=== PATIENT | male | born 1995 | race Caucasian/White ===

== ENCOUNTER 2021-02-17 07:23 | Outpatient (REF) | payer OTHER, SELFPAY ==
--- NOTE | ~2021-02-17 | MR_ITS ---
MRI OF THE BRAIN WITHOUT IV CONTRAST INDICATION: Headache. COMPARISON: Head CT 05/21/2020. TECHNIQUE: Multiplanar multisequence MR imaging of the brain was obtained without IV contrast. FINDINGS: There is no hydrocephalus, extra-axial surface collection, or herniation. No parenchymal signal abnormality. The major flow voids at the skull base are preserved. There is no acute infarct on diffusion-weighted imaging. There is no intracranial hemorrhage on the gradient recalled echo acquisition. The midline structures are normal. The cerebellar tonsils are normally positioned. The cerebellum and brainstem are normal. The craniocervical junction is normal. Osseous marrow signal intensity is homogenous. The visualized soft tissues are unremarkable. Mild mucosal thickening throughout the paranasal sinuses. Significant leftward deviation of the nasal septum. MR/MR head/brain wo con IMPRESSION: Unremarkable noncontrast MRI of the brain. Mild mucosal thickening throughout the paranasal sinuses. Significant leftward deviation of the nasal septum.
== END 2021-02-17 07:24 | disposition home or self-care (01) ==
LOC: HO.MRI 07:23
PROVIDERS: Visit Provider Nurse Practitioner Family
DX: R51.9 Headache, unspecified (principal); G89.29 Other chronic pain
CPT/HCPCS: 70551

== ENCOUNTER 2021-06-11 06:56 | Outpatient (REF) | payer OTHER, SELFPAY ==
[2021-06-11 11:57] LABS: Alanine Aminotransferase 28 U/L (0-40); Albumin Level 4.6 g/dL (3.5-5.0); Alkaline Phosphatase 73 U/L (39-117); Anion Gap 12 (12-20); Aspartate Amino Transferase 18 U/L (5-37); Bilirubin Total 0.7 mg/dL (0.0-1.0); Blood Urea Nitrogen 15 mg/dL (9-16); Calcium 9.8 mg/dL (8.4-10.2); Carbon Dioxide 30 mmol/L (22-29); Chloride 104 mmol/L (96-108); Cholesterol 218 mg/dL; Estimated Glomerular Filt Rate > 60; Glucose Fasting 96 mg/dL (60-99); HDL Cholesterol 47 mg/dL; LDL Cholesterol Calculated 154 mg/dl; Potassium 4.2 mmol/L (3.3-5.1); Sodium 142 mmol/L (135-145); Total Protein 7.5 g/dL (6.5-8.0); Triglycerides 87 mg/dL
[2021-06-11 12:22] LABS: TSH reflex Free T4 0.76 uIU/mL (0.32-4.0)
== END 2021-06-11 06:57 | disposition home or self-care (01) ==
LOC: HO.HMGCLDS 06:56
PROVIDERS: PCP Nurse Practitioner Family; Visit Provider Nurse Practitioner Family
DX: G89.29 Other chronic pain (principal); R51.9 Headache, unspecified
CPT/HCPCS: 36415; 80053; 80061; 84443

== ENCOUNTER 2021-07-18 10:14 | Emergency (ER) | payer OTHER, SELFPAY ==
--- NOTE | ~2021-07-18 | XR_ITS ---
EXAMINATION: XR CHEST CLINICAL INFORMATION: Chest pain COMPARISON: Chest radiographs 12/26/2019 TECHNIQUE: 2 views of the chest were obtained. FINDINGS: The lungs are clear. There is no airspace consolidation, groundglass opacity, pneumothorax, or pleural reaction. The costophrenic sulci are clear. There is no effusion. The heart is normal in size. The hilar and mediastinal contours are normal. There is a gentle dextrocurvature again noted thoracic spine. No visible acute bony abnormality. XR/XR chest 2V IMPRESSION: Unremarkable examination.
[2021-07-18 10:20] VITALS: BP 130/81; PULSE 88; RESP 16; TEMP 36.2; O2SAT 97; BMI 23.7
--- NOTE | 2021-07-18 10:41 | ECG_ITS ---
Test Reason : SOB Blood Pressure : / mmHG Vent. Rate : 083 BPM Atrial Rate : 083 BPM P-R Int : 138 ms QRS Dur : 092 ms QT Int : 384 ms P-R-T Axes : 077 064 049 degrees QTc Int : 451 ms Normal sinus rhythm Possible Left atrial enlargement Borderline ECG No previous ECGs available Referred By: Lois Ledezma Electronically Signed By:STACI HAWKINS
--- NOTE | 2021-07-18 10:41 | ED_ITS ---
HPI - Chest Pain General Chief Complaint: Chest Pain Stated Complaint: chest pain Time Seen by Provider: 07/18/21 10:40 Source: patient Mode of arrival: ambulatory Limitations: no limitations History of Present Illness MD complaint: chest pain Onset (ago): day(s) (4) Timing of current episode: constant Prior episodes: No Onset: during rest Pain location: substernal and left chest Pain radiation: none Severity: moderate Quality: tightness and heaviness Relieving factors: nothing Exacerbating factors: nothing Associated symptoms: dyspnea Treatment prior to arrival: none Related Data Allergies Allergy/AdvReac Type Severity Reaction Status Date / Time No Known Allergies Allergy Verified 03/25/21 14:25 [No Known Allergies*] Review of Systems Review of Systems: Constitutional : No Weight loss, No Fever, No Chills ENT/Mouth : No sore throat, No Rhinorrhea Eyes: No Eye Pain, No Swelling Cardiovascular : pos Chest Pain, pos SOB, no Dyspnea on Exertion, No Orthopnea, No Edema, No Palpitations Respiratory : No Cough, No Sputum Gastrointestinal : no Nausea, No Vomiting, No Diarrhea, No abdominal Pain, No Hematochezia, No Melena Genitourinary : No Dysuria, No Urinary Frequency Musculoskeletal : No joint pain, No Myalgias, No Joint Swelling Skin : No Skin Lesions, No rash Neuro : No Weakness, No Numbness, No Dizziness, No Headache Psych : No Anxiety/Panic, No Depression Heme/Lymph: No Bruising, No Lymphadenopathy Endocrine : No Polyuria, No Polydipsia All other systems reviewed and are negative PMFSH Past Medical History Attestation statement: The following information was validated with the patient. Medical History Chronic pain disorder Fibromyalgia High cholesterol Family History Family History Father No problems noted. Mother No problems noted. Maternal Aunt Cancer Sister No problems noted. Social History Social History Alcohol intake: never Patient Tobacco Use Status: Never used Tobacco Use of substances other than those prescribed or required for medical reasons: No Advance Directives: No Advance Directives Information Provided: No Physical Exam Vital Signs: Vital Signs: Last Vital Signs Temp 97.1 F 07/18/21 10:20 Pulse 88 07/18/21 10:20 Resp 16 07/18/21 10:20 BP 130/81 07/18/21 10:20 Pulse Ox 97 07/18/21 10:20 Body Mass Index 23.7 Appearance: Alert. Oriented X3. No acute distress. Eyes: Pupils equal, round and reactive to light. ENT: Pharynx normal. Neck: Normal inspection. Neck supple. CVS: Normal heart rate and rhythm. Pulses normal. Respiratory: No respiratory distress. Breath sounds normal. Abdomen: Soft and non-tender. Skin: Skin warm and dry. Normal skin color. Normal skin turgor. Extremities: No lower extremity edema. No calf ttp Neuro: Oriented X 3. No motor deficit. No sensory deficit. Course Course Course Narrative: EKG nonspecific, neg trop with 4 days of symptoms, CXR negative COVID negative stable for DC MDM - Chest Pain MDM Narrative Medical decision making narrative: 25 yo male with hx of dislipidemia here with complaints of chest pain x 4 days with some associated dyspnea at this time he is PERC negative, atypical for ACS, low heart score - no recent URIs to suggest pericarditis/myocarditis. At this time will need troponin x1, CXR, EKG - dispo per results and findings. Lab Data Labs: Lab Results 07/18/21 07/18/21 Range/Units 11:14 11:14 Troponin I High Sens < 3.5 (<3.5-35.0) ng/L COVID-19 ([facility]) Negative (Negative) COVID-19 Clin Com See Note ECG Data ECG #1: Attestation: I personally reviewed and interpreted this ECG as follows: ECG interpretation date: 07/18/21 ECG interpretation time: 11:13 Interpretation: Rate: 83 Rhythm: NSR [place]: normal Normal P waves. Normal DANTE. Normal QRS complex. ST T wave : no acute ischemia nonspecific no CARSON qTC: normal prior studies: no acute ischemia The study has been interpreted contemporaneously by me. . Scores Heart Score History: -0- slightly suspicious ECG: -0- normal Age: -0- < or = 45 Risk factory: -1- 1 or 2 risk factors Troponin: -0- < or = normal limit Score: 1 Risk: 1.7% Discharge Plan Discharge Clinical Impression: Chest pain Qualifiers: Chest pain type: unspecified Qualified Code(s): R07.9 - Chest pain, unspecified Patient Disposition: Home, Self-Care Instructions: Chest Pain (ED) Additional Instructions: return to ED for any worsening symptoms or concerns NEGATIVE COVID Referrals: Fareed Nina, [facility] [Primary Care Provider] - 3 days (if this continues possible referral to cardiology ) Stand Alone Forms: Work/School Release
[2021-07-18 11:38] LABS: Troponin-I High Sensitivity < 3.5 ng/L (<3.5-35.0)
[2021-07-18 11:45] LABS: COVID-19 Test Negative (Negative)
== END 2021-07-18 12:21 | disposition home or self-care (01) ==
PROVIDERS: Emergency Provider Emergency Medicine; PCP Nurse Practitioner Family
DX: R07.9 Chest pain, unspecified (principal); Z20.822 Contact with and (suspected) exposure to COVID-19
CPT/HCPCS: 36415; 71046; 84484; 87635; 93005; 99283; 99284

== ENCOUNTER 2022-12-14 07:28 | Outpatient (REF) | payer OTHER, SELFPAY ==
[2022-12-14 11:57] LABS: MANUAL DIFF FLAG NO
[2022-12-14 12:04] LABS: Appearance Urine Turbid; Color Urine Yellow; Glucose Urine UA Negative (Negative); Leukocyte Esterase Urine Negative (Negative); Nitrite Urine Negative (Negative); PH 5.5 (5.0-9.0); Specific Gravity - Urine 1.025 (1.005-1.025); Urine Blood Negative (Negative); Urine Ketones Negative (Negative); Urine Protein Negative (Neg-Trace)
[2022-12-14 12:10] LABS: Basophils Percent Auto 0.6 % (0-2); Eosinophils Absolute Auto 0.3 X10*3/uL (0.0-0.4); Eosinophils Percent Auto 4.1 % (0-4); Hematocrit 44.3 % (42.0-52.0); Hemoglobin 15.1 g/dl (14.0-18.0); Imm Gran Abs Auto 0.02 X10*3/uL (0.00-0.03); Imm Gran Pct Auto 0.3 % (0.0-0.4); Lymphocytes Absolute Auto 2.9 X10*3/uL (1.2-4.9); Lymphocytes Percent Auto 43.7 % (20-40); Mean Corpuscular HGB Conc 34.1 g/dl (31.0-36.0); Mean Corpuscular Hemoglobin 29.2 pg (27.0-33.0); Mean Corpuscular Volume 85.5 fL (80.0-98.0); Monocytes Absolute Auto 0.6 X10*3/uL (0.1-1.2); Monocytes Percent Auto 9.3 % (2-11); Neutrophils Absolute Auto 2.8 x10*3/uL (2.0-8.3); Platelet Count 231 X10*3/uL (160-400); Red Blood Count 5.18 X10*6/uL (4.60-5.80); Red Cell Distribution Width 12.6 % (11.0-16.0); White Blood Count 6.6 X10*3/uL (4.8-10.8)
[2022-12-14 12:38] LABS: Alanine Aminotransferase 25 U/L (0-40); Albumin Level 4.4 g/dL (3.5-5.0); Alkaline Phosphatase 77 U/L (39-117); Anion Gap 9 (12-20); Aspartate Amino Transferase 20 U/L (5-37); Bilirubin Total 0.4 mg/dL (0.0-1.0); Blood Urea Nitrogen 15 mg/dL (9-16); Calcium 9.5 mg/dL (8.4-10.2); Carbon Dioxide 30 mmol/L (22-29); Chloride 106 mmol/L (96-108); Cholesterol 205 mg/dL; Estimated Glomerular Filt Rate > 60; Glucose Fasting 107 mg/dL (60-99); HDL Cholesterol 41 mg/dL; LDL Cholesterol Calculated 149 mg/dl; Potassium 4.2 mmol/L (3.3-5.1); Sodium 141 mmol/L (135-145); Total Protein 6.9 g/dL (6.5-8.0); Triglycerides 78 mg/dL
[2022-12-14 12:46] LABS: TSH reflex Free T4 0.96 uIU/mL (0.32-4.0)
== END 2022-12-14 07:29 | disposition home or self-care (01) ==
LOC: HO.HMGCLDS 07:28
PROVIDERS: PCP Nurse Practitioner Family; Visit Provider Nurse Practitioner Family
DX: Z00.00 Encounter for general adult medical examination without abnormal findings (principal)
CPT/HCPCS: 36415; 80053; 80061; 81003; 84443; 85025

== ENCOUNTER 2023-07-21 07:06 | Outpatient (AMB) | payer OTHER, SELFPAY ==
--- NOTE | 2023-07-21 07:21 | MHC.OFFVIS ---
Intake Intake Visit Reasons: Discuss request for labs Android [phone] Allergies No Known Allergies [No Known Allergies*] Allergy (Verified 11/16/22 09:04) HPI Discuss request for labs Android [phone] HPI Details Patient reports approximately 1 year ago he developed COVID. He reports since then he has had intermittent shortness of breath. He denies any fevers, chest pain, chills, nausea, vomiting. Will order a chest x-ray and go from here. Did reinforce the patient that there is such thing as long COVID , characterized b residual COVID symptoms in general. [facility] Medical History Chronic pain disorder Fibromyalgia High cholesterol Family History Father No problems noted. Mother No problems noted. Maternal Aunt Cancer Sister No problems noted. Social History Housing: Apartment Alcohol intake: never Patient Tobacco Use Status: Never used Tobacco e-Cigarette/Vaping Use: Never Used Second Hand Smoke Exposure: No service: No Current occupational status: employed Current occupation: [employer] Current occupational exposures/hazards: No Cognitive needs: No Hearing needs: No Vision needs: No Physical Exam Psych Appearance: grossly normal Mental Status: mental status grossly normal Speech and movement: Normal speech and movement present Affect: normal affect Attitude: cooperative Thought process: Normal thought process present Thought content: Normal thought content present Insight: Good insight present (Psych) Judgement: Good judgement present (Psych) Assessment & Plan Assessment & Plan (1) SOB (shortness of breath): Code(s): R06.02 - Shortness of breath (2) Long COVID: Code(s): U09.9 - Post COVID-19 condition, unspecified Orders: Orders Complete Blood Count Auto Diff Today E78.5 - Hyperlipidemia, unspecified, Z00.00 - Encounter for general adult medical examination without abnormal findings Comprehensive [place]. Panel Fast Today E78.5 - Hyperlipidemia, unspecified, Z00.00 - Encounter for general adult medical examination without abnormal findings TSH reflex Free T4 Today E78.5 - Hyperlipidemia, unspecified, Z00.00 - Encounter for general adult medical examination without abnormal findings UA CC w/rflx Micro + Cult Today E78.5 - Hyperlipidemia, unspecified, Z00.00 - Encounter for general adult medical examination without abnormal findings Lipid Panel Today E78.5 - Hyperlipidemia, unspecified, Z00.00 - Encounter for general adult medical examination without abnormal findings XR chest 2V Today R06.02 - Shortness of breath Telehealth Telehealth Location of provider rendering services: practice address Location of patient: address on file Patient Identification confirmed using: Name, : Yes Telehealth method: video Patient verbally consented to treatment: Yes Patient verbally consented to billing insurance company: Yes Patient informed of any privacy concerns related to visit: Yes Minutes spent on Phone/Video with Pt.: 10 Coding Level of Care Code Tele Est Pt Level 3 (21493) Diagnoses SOB (shortness of breath) R06.02 Long COVID U09.9
== END 2023-07-21 07:49 | disposition home or self-care (01) ==
PROVIDERS: PCP Nurse Practitioner Family; Visit Provider Nurse Practitioner Family
DX: R06.02 Shortness of breath (principal); U09.9 Post COVID-19 condition, unspecified
CPT/HCPCS: 99213

== ENCOUNTER 2023-07-22 08:11 | Outpatient (REF) | payer OTHER, SELFPAY ==
[2023-07-22 12:08] LABS: Alanine Aminotransferase 26 U/L (0-40); Albumin Level 4.7 g/dL (3.5-5.0); Alkaline Phosphatase 78 U/L (39-117); Anion Gap 16 (12-20); Aspartate Amino Transferase 20 U/L (5-37); Bilirubin Total 0.6 mg/dL (0.0-1.0); Blood Urea Nitrogen 16 mg/dL (9-16); Calcium 9.6 mg/dL (8.4-10.2); Carbon Dioxide 26 mmol/L (22-29); Chloride 102 mmol/L (96-108); Cholesterol 231 mg/dL (<200); Estimated Glomerular Filt Rate > 60; Glucose Fasting 87 mg/dL (60-99); HDL Cholesterol 42 mg/dL (>40); LDL Cholesterol Calculated 169 mg/dL (<100); Potassium 3.6 mmol/L (3.3-5.1); Sodium 140 mmol/L (135-145); TSH reflex Free T4 0.43 uIU/mL (0.32-4.0); Total Protein 7.9 g/dL (6.5-8.0); Triglycerides 103 mg/dL (<150)
== END 2023-07-22 08:12 | disposition home or self-care (01) ==
LOC: HO.HMGCLDS 08:11
PROVIDERS: PCP Nurse Practitioner Family; Visit Provider Nurse Practitioner Family
DX: Z00.00 Encounter for general adult medical examination without abnormal findings (principal); E78.5 Hyperlipidemia, unspecified
CPT/HCPCS: 36415; 80053; 80061; 81003; 84443; 85025

== ENCOUNTER 2023-07-23 09:03 | Outpatient (REF) | payer OTHER, SELFPAY | END 2023-07-23 09:04 | disposition home or self-care (01) | LOC: HO.HMGCX 09:03 | PROVIDERS: PCP Nurse Practitioner Family; Visit Provider Nurse Practitioner Family | DX: R06.02 Shortness of breath (principal) | CPT/HCPCS: 71046 ==

== ENCOUNTER 2023-08-26 08:17 | Outpatient (REF) | payer OTHER, SELFPAY ==
--- NOTE | 2023-08-26 09:01 | PFT_ITS ---
Forced vital capacity 94%, FEV1 88%, FEV1/FVC ratio is 77. [id number] 75% and MVV is 96%. Post bronchodilator therapy, there is no change. Total lung capacity 82% and residual volume is 43%. Diffusion capacity 94%. CONCLUSION: Normal pulmonary function test. No evidence of obstructive or restrictive pulmonary disorder. Marked decrease in the residual volume is more due to technical issue. Clinical correlation is recommended. MD AMRITA Aguilera/LUCIA / [phone]
== END 2023-08-26 08:18 | disposition home or self-care (01) ==
LOC: HO.RESP 08:17
PROVIDERS: PCP Nurse Practitioner Family; Visit Provider Nurse Practitioner Family
DX: R06.02 Shortness of breath (principal); U09.9 Post COVID-19 condition, unspecified
CPT/HCPCS: 94010; 94727; 94729

== ENCOUNTER → 2023-08-26 09:01 | Outpatient (BNV) | payer OTHER, SELFPAY | PROVIDERS: PCP Nurse Practitioner Family; Visit Provider Internal Medicine | DX: R06.02 Shortness of breath (principal); U09.9 Post COVID-19 condition, unspecified | CPT/HCPCS: 94060; 94727; 94729 ==

== ENCOUNTER 2023-11-18 10:30 | Outpatient (AMB) | payer OTHER, SELFPAY ==
[2023-11-18 10:41] VITALS: BP 128/86; PULSE 73; O2SAT 99; BMI 26.7
--- NOTE | 2023-11-18 10:41 | A.OFFPC_ITS ---
Vital Signs 11/18/23 10:41 Height 5 ft 11 in Weight 191 lb 6 oz BMI 26.7 BP 128/86 Blood Pressure Location Rt brachial Position Sitting Pulse 73 Pulse Source Pulse Oximeter Pulse Oximetry (%) 99 Oxygen Delivery Method Room Air Intake Visit Reasons: PE Intake Note: Pt is here for his Annual PE Allergies No Known Allergies [No Known Allergies*] Allergy (Verified 11/18/23 10:43) Medication List - Last Reconciled 11/18/23 by WEN Gorman ketoconazole 2% 1 appl topical BID Tobacco use date assessed: 11/18/23 Dental Screening Dental Screen Date: 11/18/23 Did you have a dental visit in the last 12 months?: No Did you have a dental problem in the last 6 months where you did not have access to dental care?: No Was dental information given to patient?: No HPI PE HPI Details Pt is here for a PE. Will order labs. Pt c/o a burning sensation of his upper chest. He reports intermittent shortness of breath with this. Pt reports that the burning can be associated with inhalation and exhalation. He reports that it is worse when lying down. Previous EKG and chest XR were WNL. Pt reports that these symptoms have been present since having COVID. Will do an EKG in office today and order chest CT. Pt has an area of tinea to his right groin. Will send ketoconazole. ? GERD component as well, will send a PPI to try to see if it helps symptoms. pt will keep in contact with me with his currrent symptoms. denies any fevers, chills, radiation of symptoms, Wheezing, N/V. [facility] Medical History High cholesterol Fibromyalgia Chronic pain disorder Family History Father No problems noted. Mother No problems noted. Maternal Aunt Cancer Sister No problems noted. Social History Housing: Apartment Alcohol intake: never Patient Tobacco Use Status: Never used Tobacco e-Cigarette/Vaping Use: Never Used Second Hand Smoke Exposure: No service: No Current occupational status: employed Current occupation: [employer] Current occupational exposures/hazards: No Cognitive needs: No Hearing needs: No Vision needs: No Questionnaire PHQ-9 Over the last 2 weeks, how often have you been bothered by any of the following problems? 1. Little interest or pleasure in doing things: not at all 2. Feeling down, depressed, or hopeless: not at all 3. Trouble falling or staying asleep, or sleeping too much: not at all 4. Feeling tired or having little energy: not at all 5. Poor appetite or overeating: not at all 6. Feeling bad about yourself - or that you are a failure or have let yourself or your family down: not at all 7. Trouble concentrating on things, such as reading the newspaper or watching television: not at all 8. Moving or speaking so slowly that other people could have noticed. Or the opposite - being so fidgety or restless that you have been moving around a lot more than usual: not at all 9. Thoughts that you would be better off or of hurting yourself in some way: not at all Total score: 0 Source: Developed by Drs. Jose Ramirez, Jennie Stanton, Ildefonso Montes and colleagues, with an educational bonnie from [employer]. Thrive Questionnaire Date Thrive assessed: 11/18/23 I am a: Patient What is your living situation today?: I have a steady place to live Within the past 12 months, did the food you bought not last and you didn't have the money to get more?: Often true Within the past 12 months, did you worry whether your food would run out before you got money to buy more?: Often true Do you have trouble paying for medicines?: No Do you have trouble getting transportation to medical appointments?: No Do you have trouble paying your heating and electricity bill?: Yes Do you have trouble taking care of your child, family member or friend?: No Do you have trouble with day-to-day activities such as bathing, preparing meals, shopping, managing finances, etc.?: No Are you currently unemployed and looking for a job?: No Are you interested in more education?: Yes THRIVE Score: 3 AUDIT C Alcohol Use Questionnaire (AUDIT-C) 1. How often do you have a drink containing alcohol?: Never Total Score: 0 VIDHYA-7 AMB Questionnaire VIDHYA-7 Date VIDHYA - 7 assessed: 11/18/23 Feeling nervous, anxious, or on edge: 0 = Not at all Not being able to stop or control worryin = Not at all Worrying too much about different things: 0 = Not at all Trouble relaxin = Not at all Being so restless that it is hard to sit still: 0 = Not at all Becoming easily annoyed or irritable: 0 = Not at all Feeling afraid as if something awful might happen: 0 = Not at all Total VIDHYA-7 score (0-4 normal; 5-9 mild; 10-14 moderate; 15-21 severe): 0 Source: Developed by Drs. Jose Ramirez, Jennie Stanton, Ildefonso Montes and colleagues, with an educational bonnie from [employer]. Review of Systems Const Denies chills and Denies fever(s) Eyes Denies blurry vision ENT Denies vertigo, Denies dizziness and Denies sore throat Card Reports chest pain (burning sensation), Denies diaphoresis, Reports dyspnea and Reports dyspnea on exertion Resp Denies cough, Reports dyspnea, Reports dyspnea on exertion and Denies wheezing GI Denies abdominal pain, Denies melena, Denies hematochezia, Denies constipation, Denies diarrhea and Denies loose stools Denies hematuria Musc Denies numbness and Denies tingling Skin/Breast Denies lesions Neuro Denies vertigo, Denies dizziness, Denies numbness and Denies tingling Psych Denies anxiety, Denies depression, Denies homicidal ideation, Denies suicidal ideation and Denies other (substance abuse) Aller/Immun Denies wheezing Physical exam (Primary Care) Vital Signs: Last Vital Signs Pulse 73 11/18/23 10:41 BP 128/86 11/18/23 10:41 Pulse Ox 99 11/18/23 10:41 Oxygen Delivery Method Room Air 11/18/23 10:41 BMI result Body Mass Index 26.7 Tobacco/Smoking Status: Tobacco use Status Tobacco use date assessed 11/18/23 11/18/23 10:45 Patient Tobacco Use Status Never used Tobacco 11/18/23 10:45 e-Cigarette/Vaping Use Never Used 11/18/23 10:45 PHQ-9: PHQ-9 Score PHQ-9: Total score 0 11/18/23 10:51 Thrive Assessment: Date of Thrive Assessment Date Thrive assessed 11/18/23 11/18/23 10:48 Const General: cooperative Nutritional Appearance: well nourished Orientation/consciousness: patient oriented x3 HENMT Head: Yes normal to inspection, Yes normocephalic and Yes atraumatic Ears: TM's normal bilaterally Eyes General: appearance normal, both eyes and all related structures Alignment and Position: alignment normal and position normal Neck Neck: Yes normal visual inspection and Yes no lymphadenopathy Thyroid: Thyroid normal Resp Effort & Inspection: normal respiratory effort Auscultation: clear to auscultation bilaterally Cardio Rate: regular rate Rhythm: regular rhythm Heart sounds: S1 normal heart sound present, S2 normal heart sound present and no murmurs GI Palpation (GI): Soft to palpation and nontender Auscultation: normal bowel sounds Male General Exam: Yes normal external exam Penis: normal penis Scrotum: scrotum normal, testes descended bilaterally and no inguinal hernias Testes: no testicular mass Skin Other: right groin with macular appearing erythema, faintly dry, tinea Neuro General: patient oriented x3, moves all extremities, no focal motor deficits and deep tendon reflexes 2+ bilaterally Romberg Test: Negative Psych Appearance: grossly normal Mental Status: mental status grossly normal Speech and movement: Normal speech and movement present Affect: normal affect Attitude: cooperative Thought process: Normal thought process present Thought content: Normal thought content present Insight: Good insight present (Psych) Judgement: Good judgement present (Psych) Assessment and Plan Assessment & Plan (1) Physical exam: Code(s): Z00.00 - Encounter for general adult medical examination without abnormal findings Plan: Labs ordered (2) Chest pain: Code(s): R07.9 - Chest pain, unspecified Qualifiers: Chest pain type: unspecified Qualified Code(s): R07.9 - Chest pain, unspecified Plan: EKG done in office, CT ordered, trying a PPI (3) Tinea: Code(s): B35.9 - Dermatophytosis, unspecified Plan: cream sent Plan The patient agreed to the use of a registered medical assistant for this encounter. Scribed for WEN Gomez by jesús Yun scribe, on 11/18/2023 at 10:55 EST. Orders: Orders Comprehensive [place]. Panel Fast Today Z00.00 - Encounter for general adult medical examination without abnormal findings UA CC w/rflx Micro + Cult Today Z00.00 - Encounter for general adult medical examination without abnormal findings Lipid Panel Today Z00.00 - Encounter for general adult medical examination without abnormal findings AMB EKG-In Office Today R07.9 - Chest pain, unspecified Complete Blood Count Auto Diff Today Z00.00 - Encounter for general adult medical examination without abnormal findings TSH reflex Free T4 Today Z00.00 - Encounter for general adult medical examination without abnormal findings CT chest wo IV con Today R07.9 - Chest pain, unspecified Medications: New ketoconazole 2% 1 appl topical BID 60 grams 0RF omeprazole 20 mg PO DAILY 30 days 30 caps 0RF Coding Level of Care Code Est Pt Prev Care 18-39y(91739) Diagnoses Physical exam Z00.00 Chest pain R07.9 Chest pain type: unspecified Tinea B35.9
== END 2023-11-18 13:37 | disposition home or self-care (01) ==
PROVIDERS: Visit Provider Nurse Practitioner Family
DX: Z00.00 Encounter for general adult medical examination without abnormal findings (principal); R07.9 Chest pain, unspecified; B35.9 Dermatophytosis, unspecified
CPT/HCPCS: 99395

== ENCOUNTER 2023-11-19 08:12 | Outpatient (REF) | payer OTHER, SELFPAY ==
[2023-11-19 11:47] LABS: MANUAL DIFF FLAG NO
[2023-11-19 11:51] LABS: Appearance Urine Clear; Color Urine Yellow; Glucose Urine UA Negative (Negative); Leukocyte Esterase Urine Negative (Negative); Nitrite Urine Negative (Negative); Specific Gravity - Urine >= 1.030 (1.005-1.025); Urine Blood Negative (Negative); Urine Ketones 15 mg/dL (Negative); Urine Protein Negative (Neg-Trace)
[2023-11-19 11:59] LABS: Basophils Percent Auto 0.4 % (0-2); Eosinophils Absolute Auto 0.1 X10*3/uL (0.0-0.4); Eosinophils Percent Auto 1.9 % (0-4); Hematocrit 47.1 % (42.0-52.0); Imm Gran Abs Auto 0.04 X10*3/uL (0.00-0.03); Imm Gran Pct Auto 0.5 % (0.0-0.4); Lymphocytes Absolute Auto 2.2 X10*3/uL (1.2-4.9); Lymphocytes Percent Auto 30.2 % (20-40); Mean Corpuscular Hemoglobin 28.3 pg (27.0-33.0); Mean Corpuscular Volume 83.2 fL (80.0-98.0); Mean Platelet Volume 12.1 fL (9.4-12.4); Monocytes Absolute Auto 0.5 X10*3/uL (0.1-1.2); Monocytes Percent Auto 7.3 % (2-11); Neutrophils Absolute Auto 4.3 x10*3/uL (2.0-8.3); Neutrophils Percent Auto 59.7 % (45-73); Platelet Count 274 X10*3/uL (160-400); Red Blood Count 5.66 X10*6/uL (4.60-5.80); Red Cell Distribution Width 12.5 % (11.0-16.0); White Blood Count 7.3 X10*3/uL (4.8-10.8)
[2023-11-19 12:20] LABS: Alanine Aminotransferase 36 U/L (0-40); Albumin Level 4.7 g/dL (3.5-5.0); Alkaline Phosphatase 88 U/L (39-117); Anion Gap 15 (12-20); Aspartate Amino Transferase 24 U/L (5-37); Bilirubin Total 0.7 mg/dL (0.0-1.0); Blood Urea Nitrogen 18 mg/dL (9-16); Calcium 9.8 mg/dL (8.4-10.2); Carbon Dioxide 23 mmol/L (22-29); Chloride 104 mmol/L (96-108); Cholesterol 232 mg/dL (<200); Estimated Glomerular Filt Rate > 60; Glucose Fasting 92 mg/dL (60-99); HDL Cholesterol 42 mg/dL (>40); LDL Cholesterol Calculated 162 mg/dL (<100); Potassium 3.8 mmol/L (3.3-5.1); Sodium 138 mmol/L (135-145); Total Protein 8.1 g/dL (6.5-8.0); Triglycerides 143 mg/dL (<150)
== END 2023-11-19 08:13 | disposition home or self-care (01) ==
LOC: HO.HMGCLDS 08:12
PROVIDERS: PCP Nurse Practitioner Family; Visit Provider Nurse Practitioner Family
DX: Z00.00 Encounter for general adult medical examination without abnormal findings (principal); Z13.220 Encounter for screening for lipoid disorders; Z13.29 Encounter for screening for other suspected endocrine disorder
CPT/HCPCS: 36415; 80053; 80061; 81003; 84443; 85025

== ENCOUNTER 2024-01-31 13:15 | Outpatient (AMB) | payer OTHER, SELFPAY ==
[2024-01-31 13:18] VITALS: BP 110/76; PULSE 84; TEMP 36.4; O2SAT 95; BMI 26.8
--- NOTE | 2024-01-31 13:18 | AM.OFFWIN_ITS ---
Intake Vital Signs 01/31/24 13:18 Height 5 ft 11 in Weight 192 lb BMI 26.8 BP 110/76 Blood Pressure Location Lt brachial Position Sitting Pulse 84 Pulse Source Pulse Oximeter Temp 97.6 F Temp Source Temporal Artery Scan Pulse Oximetry (%) 95 Oxygen Delivery Method Room Air Intake Visit Reasons: EP chest pain difficulty breathing TRIAGE (lobby) Intake Note: pt is here today for chest pain diff breathing started 2 years ago Patient Tobacco Use Status: Never used Tobacco Allergies No Known Allergies [No Known Allergies*] Allergy (Verified 01/31/24 13:20) Do you need a note to return to daycare/school/sports/work: No HPI HPI Comments History of Present Illness Details 28 y/o male patient who presents to [facility] with c/o chest pain associated with SOB and difficulty to talk in complete sentences. Reports Epigastric chest pain. His symptoms started 2 years ago (on/Off). H/o Fibromylagia per Patient but otherwise healthy. Denies any mental conditions (Anxiety or depression). He was given Omeprazole previously by PCP with no relief. [facility] Medical History High cholesterol Fibromyalgia Chronic pain disorder Family History Father No problems noted. Mother No problems noted. Maternal Aunt Cancer Sister No problems noted. Social History Housing: Apartment Alcohol intake: never Patient Tobacco Use Status: Never used Tobacco e-Cigarette/Vaping Use: Never Used Second Hand Smoke Exposure: No service: No Current occupational status: employed Current occupation: [employer] Current occupational exposures/hazards: No Cognitive needs: No Hearing needs: No Vision needs: No Physical Exam Vital Signs: Last Vital Signs Temp 97.6 F 01/31/24 13:18 Pulse 84 01/31/24 13:18 BP 110/76 01/31/24 13:18 Pulse Ox 95 01/31/24 13:18 Oxygen Delivery Method Room Air 01/31/24 13:18 BMI result Body Mass Index 26.8 Const General: no acute distress; No comfortable Nutritional Appearance: thin Orientation/consciousness: patient oriented x3 Resp Effort & Inspection: normal respiratory effort, able to speak in complete sentences, no audible wheezes and no cough Auscultation: clear to auscultation bilaterally, no crackles, no rales, no rhonchi and no wheezes Neuro General: patient oriented x3, gait normal and moves all extremities Psych Speech and movement: Clear speech present Affect: Anxious affect present Assessment & Plan Assessment & Plan (1) Epigastric pain: Code(s): R10.13 - Epigastric pain Plan: Pt very uncomfortable during the visit, Advised to go ED for further evaluation. CT scan chest was denied by Insurance. Pt stable, vitals WNL and exam WNL. Lungs CTA. Pt able to speak in complete sentences. Coding Level of Care Code Est Pt Level 3 (88657) Diagnoses Epigastric pain R10.13 Time Spent (min) 15
== END 2024-01-31 14:26 | disposition home or self-care (01) ==
PROVIDERS: PCP Nurse Practitioner Family; Visit Provider Nurse Practitioner Family
DX: R10.13 Epigastric pain (principal)
CPT/HCPCS: 99213

== ENCOUNTER 2024-05-04 08:12 | Outpatient (AMB) | payer OTHER, SELFPAY ==
[2024-05-04 08:18] VITALS: BP 118/72; PULSE 86; TEMP 36.6; O2SAT 98; BMI 26.8
--- NOTE | 2024-05-04 08:18 | MHC.OFFWIV ---
Intake Vital Signs 05/04/24 08:18 Height 5 ft 11 in Weight 192 lb BMI 26.8 BP 118/72 Blood Pressure Location Rt brachial Position Sitting Pulse 86 Pulse Source Pulse Oximeter Temp 97.9 F Temp Source Oral Pulse Oximetry (%) 98 Intake Visit Reasons: EP Burning/numbness ~ mouth/tongue Intake Note: pt is here for burning and numbness in mouth and tongue Patient Tobacco Use Status: Never used Tobacco Allergies No Known Allergies [No Known Allergies*] Allergy (Verified 05/04/24 08:18) Medication List - Last Reconciled 05/04/24 by Love Mcneal NP No Known Home Meds Do you need a note to return to daycare/school/sports/work: Yes HPI EP Burning/numbness ~ mouth/tongue HPI Details This note is constructed using voice recognition software. While every effort has been made to ensure accuracy, upward bound director errors may have been included. The patient is a 28 year old male who presents to the clinic today with mouth and tongue burning sensation since yesterday after eating a new type of sushi. He was also concerned as he had a partner who had herpes with no open lesions and wanted to make sure that there were no open lesions in his mouth. He does not have any pinpoint tenderness, but has widespread sensation, it is more intermittent in nature. He has no discharge, no tongue coating, no cough, no fever, no dyspnea, no sinus congestion. He does have chronic seasonal allergies, which he treats with some form of [id number] medication but he can not recall the name at this time. He has had no other exposure to any sick person. He denies any tongue swelling, difficulty breathing. [facility] Medical History High cholesterol Fibromyalgia Chronic pain disorder Family History Father No problems noted. Mother No problems noted. Maternal Aunt Cancer Sister No problems noted. Social History Housing: Apartment Alcohol intake: never Patient Tobacco Use Status: Never used Tobacco e-Cigarette/Vaping Use: Never Used Second Hand Smoke Exposure: No service: No Current occupational status: employed Current occupation: [employer] Current occupational exposures/hazards: No Cognitive needs: No Hearing needs: No Vision needs: No Review of Systems Const All systems reviewed & are unremarkable except as noted in HPI and below Physical Exam Vital Signs: Last Vital Signs Temp 97.9 F 05/04/24 08:18 Pulse 86 05/04/24 08:18 BP 118/72 05/04/24 08:18 Pulse Ox 98 05/04/24 08:18 BMI result Body Mass Index 26.8 Const General: cooperative, healthy appearing, comfortable, no acute distress and alert Orientation/consciousness: patient oriented x3 Limitations: no limitations HEENT Head: Yes normal to inspection and Yes normocephalic Ears: hearing grossly normal bilaterally General nose exam: Normal external nose present, Abnormal mucous membranes and turbinates present erythematous on the right (Mild) and Nasal discharge present clear Face and sinus: Yes normal facial exam and Yes sinuses nontender Mouth: Normal oral and palatal mucosa present and tongue normal Teeth and gingiva: dentition normal Throat: Yes posterior oropharynx normal Eyes General: appearance normal, both eyes and all related structures Neck Neck: Yes normal visual inspection, Yes full ROM and Yes no lymphadenopathy Resp Effort & Inspection: normal respiratory effort and able to speak in complete sentences Auscultation: clear to auscultation bilaterally Cardio Jugular venous distension: no JVD Palpation: normal PMI Rate: regular rate Heart sounds: S1 normal heart sound present, S2 normal heart sound present, no click, no gallops, no murmurs and no rubs Skin General skin exam: no rashes or lesions noted, elasticity normal and turgor normal Neuro General: patient oriented x3 Psych Appearance: grossly normal Mental Status: mental status grossly normal Speech and movement: Normal speech and movement present Affect: normal affect Assessment & Plan Assessment & Plan (1) Burning sensation of mouth: Code(s): R20.8 - Other disturbances of skin sensation Plan: Etiology unclear. Does not appear to be anaphylactic response, additionally there are no lesions present on examination, inconsistent with herpes virus. Discussed lack of appropriate testing in absence of obvious source. Advised avoidance of similar associated that he consumed, as allergic reaction to the food is most likely in this particular case. Additionally discussed allergy treatment in the event that this is part of his allergies. Advised ER with sudden tongue swelling, difficulty breathing. Advised follow up with PCP for any additional or ongoing symptoms. Plan See above for full details and plan. Coding Level of Care Code Est Pt Level 3 (84229) Diagnoses Burning sensation of mouth R20.8
== END 2024-05-04 08:55 | disposition home or self-care (01) ==
PROVIDERS: PCP Nurse Practitioner Family; Visit Provider Registered Nurse
DX: R20.8 Other disturbances of skin sensation (principal)
CPT/HCPCS: 99213

== ENCOUNTER 2024-05-11 07:59 | Outpatient (AMB) | payer OTHER, SELFPAY ==
[2024-05-11 08:15] VITALS: BP 118/74; PULSE 76; TEMP 36.6; O2SAT 97; BMI 26.8
--- NOTE | 2024-05-11 08:15 | AM.OFFWIN_ITS ---
Intake Vital Signs 05/11/24 08:15 Height 5 ft 11 in Weight 192 lb BMI 26.8 BP 118/74 Blood Pressure Location Lt brachial Position Sitting Pulse 76 Pulse Source Pulse Oximeter Temp 98 F Temp Source Temporal Artery Scan Pulse Oximetry (%) 97 Intake Visit Reasons: Burn on tongue/Lips Intake Note: pt is here for burn on tongue and lips Patient Tobacco Use Status: Never used Tobacco Allergies No Known Allergies [No Known Allergies*] Allergy (Verified 05/11/24 08:15) Medication List - Last Reconciled 05/11/24 by Love Mcneal NP No Known Home Meds Do you need a note to return to daycare/school/sports/work: Yes HPI Burn on tongue/Lips HPI Details This note is constructed using voice recognition software. While every effort has been made to ensure accuracy, regulatory affairs internship errors may have been included. The patient is a 28 year old male who presents to the clinic today with ongoing burning sensation in his throat. He was last seen last week with similar, at that time had felt that this could have been related to some new type of sushi he had consumed, and he was continuing to monitor for any signs of any worsening. Since that time, he has developed small raised lesions to the corner of his mouth, and has some burning sensation in the area. Notes that he has had intercourse with a person infected with herpes virus, though there was no known open lesions. It did use condoms, however did not use condoms for oral intercourse, nor kissing. He denies cough, dyspnea, fever, chills, difficulty urine needing burning sensation with urinating, lesions to his pain is. [facility] Medical History High cholesterol Fibromyalgia Chronic pain disorder Family History Father No problems noted. Mother No problems noted. Maternal Aunt Cancer Sister No problems noted. Social History Housing: Apartment Alcohol intake: never Patient Tobacco Use Status: Never used Tobacco e-Cigarette/Vaping Use: Never Used Second Hand Smoke Exposure: No service: No Current occupational status: employed Current occupation: [employer] Current occupational exposures/hazards: No Cognitive needs: No Hearing needs: No Vision needs: No Review of Systems Const All systems reviewed & are unremarkable except as noted in HPI and below Physical Exam Vital Signs: Last Vital Signs Temp 98 F 05/11/24 08:15 Pulse 76 05/11/24 08:15 BP 118/74 05/11/24 08:15 Pulse Ox 97 05/11/24 08:15 BMI result Body Mass Index 26.8 Const General: cooperative, healthy appearing, comfortable, no acute distress and alert Orientation/consciousness: patient oriented x3 Limitations: no limitations HEENT Other: Numerous small raised round lesions to vermilion border on right and left, with small amount of erythema surrounding the lesions on the right. No open lesions. Head: Yes normal to inspection and Yes normocephalic Ears: hearing grossly normal bilaterally General nose exam: Normal external nose present Face and sinus: Yes normal facial exam and Yes sinuses nontender Mouth: tongue normal and other Teeth and gingiva: dentition normal Throat: Yes posterior oropharynx normal Eyes General: appearance normal, both eyes and all related structures Neck Neck: Yes normal visual inspection, Yes full ROM and Yes no lymphadenopathy Resp Effort & Inspection: normal respiratory effort and able to speak in complete sentences Auscultation: clear to auscultation bilaterally Cardio Jugular venous distension: no JVD Palpation: normal PMI Rate: regular rate Heart sounds: S1 normal heart sound present, S2 normal heart sound present, no click, no gallops, no murmurs and no rubs Male General Exam: Yes normal external exam, No Genital lesions present and No tenderness Penis: normal penis and No Genital lesions present Skin General skin exam: no rashes or lesions noted, elasticity normal and turgor normal Neuro General: patient oriented x3 Psych Appearance: grossly normal Mental Status: mental status grossly normal Speech and movement: Normal speech and movement present Affect: normal affect Assessment & Plan Assessment & Plan (1) Burning sensation of mouth: Code(s): R20.8 - Other disturbances of skin sensation Plan: CT NG obtained to rule out chlamydia gonorrhea in setting of recent sexual encounters. Given physical examination we presumed that he is likely developing herpes infection and did initiate antiviral therapy today. Advised follow up with PCP for additional testing as necessary. Advised avoidance of new sexual encounters without the use of condoms. Advised consideration of STI testing between new partners. Plan See above for full details and plan. Orders: Orders CT NG by PCR Today R20.8 - Other disturbances of skin sensation Medications: New acyclovir 400 mg PO TID 10 days 30 tabs 0RF Coding Level of Care Code Est Pt Level 4 (86354) Diagnoses Burning sensation of mouth R20.8 Time Spent (min) 25
== END 2024-05-11 09:12 | disposition home or self-care (01) ==
PROVIDERS: PCP Nurse Practitioner Family; Visit Provider Registered Nurse
DX: R20.8 Other disturbances of skin sensation (principal)
CPT/HCPCS: 99213

== ENCOUNTER 2024-05-11 08:37 | Outpatient (REF) | payer OTHER, SELFPAY ==
[2024-05-17 12:34] LABS: C. Trachomatis RNA TMA, Throat NOT DETECTED; N. gonorrhoeae RNA TMA, Throat NOT DETECTED
== END 2024-05-11 08:38 | disposition home or self-care (01) ==
LOC: HO.LNP 08:37
PROVIDERS: Visit Provider Registered Nurse
DX: R20.8 Other disturbances of skin sensation (principal)
CPT/HCPCS: 87491; 87591

== ENCOUNTER 2024-05-22 08:45 | Outpatient (AMB) | payer OTHER, SELFPAY ==
--- NOTE | 2024-05-22 09:09 | MHC.OFFWIV ---
Intake Vital Signs 05/22/24 09:11 Height 5 ft 11 in Weight 196 lb BMI 27.3 BP 114/78 Blood Pressure Location Lt brachial Position Sitting Pulse 92 Pulse Source Pulse Oximeter Temp 97.8 F Temp Source Temporal Artery Scan Pulse Oximetry (%) 98 Oxygen Delivery Method Room Air Intake Visit Reasons: EP Allergy Intake Note: pt c/o allergy symptoms. Started 2 weeks ago Patient Tobacco Use Status: Never used Tobacco Allergies No Known Allergies [No Known Allergies*] Allergy (Verified 05/22/24 09:09) Do you need a note to return to daycare/school/sports/work: No HPI EP Allergy HPI Details This note is constructed using voice recognition software. While every effort has been made to ensure accuracy, flat cutter errors may have been included. The patient is a 28 year old male who presents to the clinic today with ongoing concern for herpes. He notes that he that he was going to be seen by his primary care provider to follow up after a herpes exposure, and was instead directed to the walk-in clinic. He denies any new concerns, reports that he has had no new lesions. He was treated with antiviral therapy, and reports that the areas on his mouth that wearing questioned did not worsen, however they also did not go away. He continues to be partners with the person who he was exposed to, and has had no additional open new lesions. He denies sore throat, fever, chills, or any generalized feeling of unwell. He does continue to report a generalized sensation of burning in his throat, without any worsening or improvement. This initially was felt to be related to food allergy, followed by herpes exposure. [facility] Medical History High cholesterol Fibromyalgia Chronic pain disorder Family History Father No problems noted. Mother No problems noted. Maternal Aunt Cancer Sister No problems noted. Social History Housing: Apartment Alcohol intake: never Patient Tobacco Use Status: Never used Tobacco e-Cigarette/Vaping Use: Never Used Second Hand Smoke Exposure: No service: No Current occupational status: employed Current occupation: [employer] Current occupational exposures/hazards: No Cognitive needs: No Hearing needs: No Vision needs: No Review of Systems Const All systems reviewed & are unremarkable except as noted in HPI and below Physical Exam Vital Signs: Last Vital Signs Temp 97.8 F 05/22/24 09:11 Pulse 92 05/22/24 09:11 BP 114/78 05/22/24 09:11 Pulse Ox 98 05/22/24 09:11 Oxygen Delivery Method Room Air 05/22/24 09:11 BMI result Body Mass Index 27.3 Const General: cooperative, healthy appearing, comfortable, no acute distress and alert Orientation/consciousness: patient oriented x3 Limitations: no limitations HEENT Other: Numerous small raised round lesions to vermilion border on right and left, with no erythema surrounding. No open lesions. Head: Yes normal to inspection and Yes normocephalic Ears: hearing grossly normal bilaterally General nose exam: Normal external nose present Face and sinus: Yes normal facial exam and Yes sinuses nontender Mouth: tongue normal and other Teeth and gingiva: dentition normal Throat: Yes posterior oropharynx normal and Yes abnormal tonsil (Stone present in right tonsil) Eyes General: appearance normal, both eyes and all related structures Neck Neck: Yes normal visual inspection, Yes full ROM and Yes no lymphadenopathy Resp Effort & Inspection: normal respiratory effort and able to speak in complete sentences Auscultation: clear to auscultation bilaterally Cardio Jugular venous distension: no JVD Palpation: normal PMI Rate: regular rate Heart sounds: S1 normal heart sound present, S2 normal heart sound present, no click, no gallops, no murmurs and no rubs Skin General skin exam: no rashes or lesions noted, elasticity normal and turgor normal Neuro General: patient oriented x3 Psych Appearance: grossly normal Mental Status: mental status grossly normal Speech and movement: Normal speech and movement present Affect: normal affect Assessment & Plan Assessment & Plan (1) Burning sensation of mouth: Code(s): R20.8 - Other disturbances of skin sensation Plan: Etiology unclear. Advised patient to follow primary care provider and continue to work towards identifying source. (2) Herpes exposure: Code(s): Z20.828 - Contact with and (suspected) exposure to other viral communicable diseases Plan: Given initially exposure, and no obvious open lesions, labs ordered to determine if he has in fact had herpes. Advised patient to follow up with PCP. Plan See above for full details and plan. Orders: Orders Herpes Simplex Virus Ab IgG Today Z20.828 - Contact with and (suspected) exposure to other viral communicable diseases Coding Level of Care Code Est Pt Level 3 (79723) Diagnoses Burning sensation of mouth R20.8 Herpes exposure Z20.828
[2024-05-22 09:11] VITALS: BP 114/78; PULSE 92; TEMP 36.6; O2SAT 98; BMI 27.3
== END 2024-05-22 09:42 | disposition home or self-care (01) ==
PROVIDERS: PCP Nurse Practitioner Family; Visit Provider Registered Nurse
DX: R20.8 Other disturbances of skin sensation (principal); Z20.828 Contact with and (suspected) exposure to other viral communicable diseases
CPT/HCPCS: 99213

== ENCOUNTER 2024-05-22 09:50 | Outpatient (REF) | payer OTHER, SELFPAY ==
[2024-05-23 21:54] LABS: Herpes Simplex Type 2 IgG <0.90 index
== END 2024-05-22 09:51 | disposition home or self-care (01) ==
LOC: HO.HMGCLDS 09:50
PROVIDERS: PCP Nurse Practitioner Family; Visit Provider Registered Nurse
DX: Z20.828 Contact with and (suspected) exposure to other viral communicable diseases (principal)
CPT/HCPCS: 36415; 86695; 86696

== ENCOUNTER 2024-06-01 08:29 | Outpatient (AMB) | payer OTHER, SELFPAY ==
--- NOTE | 2024-06-01 07:47 | MHC.PC.OV ---
Intake Visit Reasons: per chauncey Allergies No Known Allergies [No Known Allergies*] Allergy (Verified 06/01/24 07:58) Medication List - Last Reconciled 06/01/24 by WEN Gorman valacyclovir 1,000 mg PO BID 7 days Tobacco use date assessed: 11/18/23 Dental Screening Dental Screen Date: 11/18/23 HPI per chauncey HPI Details Pt has a hx of herpes type 1. Pt was recently taking valacyclovir, and was previously on acyclovir.. He reports vesicles around his mouth. Pt does not have genital lesions. Will send prednisone. Denies fever, chills, and dizziness. Pt will cont to keep contact with me on his condition. [facility] Medical History High cholesterol Fibromyalgia Chronic pain disorder Family History Father No problems noted. Mother No problems noted. Maternal Aunt Cancer Sister No problems noted. Social History Housing: Apartment Alcohol intake: never Patient Tobacco Use Status: Never used Tobacco e-Cigarette/Vaping Use: Never Used Second Hand Smoke Exposure: No service: No Current occupational status: employed Current occupation: [employer] Current occupational exposures/hazards: No Cognitive needs: No Hearing needs: No Vision needs: No Questionnaire Thrive Questionnaire Date Thrive assessed: 11/18/23 VIDHYA-7 AMB Questionnaire VIDHYA-7 Date VIDHYA - 7 assessed: 11/18/23 Source: Developed by Drs. Jose Ramirez, Jennie Stanton, Ildefonso Montes and colleagues, with an educational bonnie from [employer]. Review of Systems Const Reports as per HPI Physical exam (Primary Care) Tobacco/Smoking Status: Tobacco use Status Tobacco use date assessed 11/18/23 06/01/24 07:51 Patient Tobacco Use Status Never used Tobacco 06/01/24 07:51 e-Cigarette/Vaping Use Never Used 06/01/24 07:51 Thrive Assessment: Date of Thrive Assessment Date Thrive assessed 11/18/23 06/01/24 07:51 Const General: cooperative Orientation/consciousness: patient oriented x3 Neuro General: patient oriented x3 Psych Appearance: grossly normal Mental Status: mental status grossly normal Speech and movement: Clear speech present Affect: normal affect Attitude: cooperative Thought process: Normal thought process present Thought content: Normal thought content present Insight: Good insight present (Psych) Judgement: Good judgement present (Psych) Telehealth Telehealth Telehealth Platform: [employer] Location of provider rendering services: practice address Location of patient: address on file Patient Identification confirmed using: Name, : Yes Telehealth method: video Patient verbally consented to treatment: Yes Patient verbally consented to billing insurance company: Yes Patient informed of any privacy concerns related to visit: Yes Minutes spent on Phone/Video with Pt.: 10 Assessment and Plan Assessment & Plan (1) Herpes simplex type 1 infection: Code(s): B00.9 - Herpesviral infection, unspecified Plan: sent prenisone. Pt will keep in contact with myself, with his condition. Plan The patient agreed to the use of a medical device assembler for this encounter. Scribed for WEN Gomez by jesús Yun scribe, on 06/01/2024 at 07:45 EST. Medications: New prednisone 50 mg PO DAILY 6 tabs 0RF Coding Level of Care Code Tele Est Pt Level 3 (22293) Diagnoses Herpes simplex type 1 infection B00.9
== END 2024-06-01 09:09 | disposition home or self-care (01) ==
LOC: HO.HMGC 08:29
PROVIDERS: PCP Nurse Practitioner Family; Visit Provider Nurse Practitioner Family
DX: B00.9 Herpesviral infection, unspecified (principal)
CPT/HCPCS: 99213

== ENCOUNTER 2024-07-12 08:06 | Outpatient (AMB) | payer OTHER, SELFPAY ==
--- NOTE | 2024-07-12 08:43 | MHC.OFFWIV ---
Intake Vital Signs 07/12/24 08:45 Height 5 ft 11 in Weight 198 lb BMI 27.6 BP 140/100 H Blood Pressure Location Lt brachial Position Sitting Pulse 70 Pulse Source Pulse Oximeter Pulse Oximetry (%) 98 Oxygen Delivery Method Room Air Intake Visit Reasons: EP-stomach numbness & tingling Intake Note: Patient here for stomach numbness and tingling which has been present for years. Patient Tobacco Use Status: Never used Tobacco Allergies No Known Allergies [No Known Allergies*] Allergy (Verified 07/12/24 08:47) Medication List - Last Reconciled 07/12/24 by Cailin Mason MD No Known Home Meds Do you need a note to return to daycare/school/sports/work: No HPI EP-stomach numbness & tingling HPI Details 28-year-old gentleman came in today to be evaluated for discomfort in epigastric and chest area Which has been happening off and on for months Sometimes the pain in the chest radiates to his left arm as well Relationship with eating He said that he has tried omeprazole for 6 weeks which did not help his stomach pain There is no nausea no vomiting no diarrhea there is no fever no chills no diaphoresis There is no relationship with activities. EKG done today shows normal sinus rhythm no acute findings Patient does not want to take any medications But would like to be evaluated by Gastroenterology Referral placed [facility] Medical History High cholesterol Fibromyalgia Chronic pain disorder Family History Father No problems noted. Mother No problems noted. Maternal Aunt Cancer Sister No problems noted. Social History Housing: Apartment Alcohol intake: never Patient Tobacco Use Status: Never used Tobacco e-Cigarette/Vaping Use: Never Used Second Hand Smoke Exposure: No service: No Current occupational status: employed Current occupation: [employer] Current occupational exposures/hazards: No Cognitive needs: No Hearing needs: No Vision needs: No Review of Systems Const All systems reviewed & are unremarkable except as noted in HPI and below Physical Exam Vital Signs: Last Vital Signs Pulse 70 07/12/24 08:45 BP 140/100 H 07/12/24 08:45 Pulse Ox 98 07/12/24 08:45 Oxygen Delivery Method Room Air 07/12/24 08:45 BMI result Body Mass Index 27.6 Const General: no acute distress Orientation/consciousness: patient oriented x3 Eyes General: appearance normal, both eyes and all related structures Resp Effort & Inspection: normal respiratory effort and able to speak in complete sentences Auscultation: clear to auscultation bilaterally Cardio Other: S1 S2 GI Other: Mild epigastric discomfort rest of abdomen is benign Neuro General: patient oriented x3 Psych Mental Status: mental status grossly normal Office Procedures EKG [id number], Complete Assessment & Plan Assessment & Plan (1) Epigastric pain: Code(s): R10.13 - Epigastric pain (2) Chest discomfort: Code(s): R07.89 - Other chest pain Plan 28-year-old gentleman came in today to be evaluated for discomfort in epigastric and chest area Which has been happening off and on for months Sometimes the pain in the chest radiates to his left arm as well Relationship with eating He said that he has tried omeprazole for 6 weeks which did not help his stomach pain There is no nausea no vomiting no diarrhea there is no fever no chills no diaphoresis There is no relationship with activities. EKG done today shows normal sinus rhythm no acute findings Patient does not want to take any medications But would like to be evaluated by Gastroenterology Referral placed Orders: Referrals Gastroenterology Referral R10.13 - Epigastric pain Coding Level of Care Code Est Pt Level 4 (65200) Diagnoses Epigastric pain R10.13 Chest discomfort R07.89 CPT Codes EKG - CPT: 21838-[id number], Complete ([id number])
[2024-07-12 08:45] VITALS: BP 140/100; PULSE 70; O2SAT 98; BMI 27.6
== END 2024-07-12 12:48 | disposition home or self-care (01) ==
PROVIDERS: PCP Nurse Practitioner Family; Visit Provider Internal Medicine
DX: R10.13 Epigastric pain (principal); R07.89 Other chest pain

== ENCOUNTER → 2024-07-12 08:06 | Outpatient (BNVA) | payer OTHER, SELFPAY | PROVIDERS: PCP Nurse Practitioner Family | DX: R10.13 Epigastric pain (principal); R07.89 Other chest pain | CPT/HCPCS: 93005; 99212 ==

== ENCOUNTER 2024-09-05 08:17 | Outpatient (REF) | payer OTHER, SELFPAY ==
[2024-09-05 11:02] LABS: HBS Num1 0.56 mIU/mL (0-7.99); HBc Num1 0.11 S/CO (0.00-0.79); HBsAGNum1 0.42 S/CO (0.00-0.99); HIV AB/AG Nonreactive (Nonreactive); HIV Num 1 0.05 S/CO (0.00-0.99); Hepatitis A Antibody IgM 0.16 Index (0-0.79); Hepatitis B Core Antibody Nonreactive (Nonreactive); Hepatitis B Surface Antigen Negative (Negative); ~HepC Num1 0.06 S/CO (0.00-0.79); ~Hepatitis A Antibody IgM Nonreactive (Nonreactive); ~Hepatitis B Surface Antibody NONREACTIVE (Nonreactive); ~Hepatitis C Antibody Nonreactive (Nonreactive)
[2024-09-05 11:07] LABS: Syphilis Screen Nonreactive (Nonreactive)
[2024-09-05 12:07] LABS: CT PCR NOT DETECTED (Not Detect.); NG PCR NOT DETECTED (Not Detect.)
[2024-09-06 18:19] LABS: Herpes Simplex Type 2 IgG <0.90 index
== END 2024-09-05 08:18 | disposition home or self-care (01) ==
LOC: HO.HMGCLDS 08:17
PROVIDERS: PCP Nurse Practitioner Family; Visit Provider Nurse Practitioner Family
DX: Z11.3 Encounter for screening for infections with a predominantly sexual mode of transmission (principal)
CPT/HCPCS: 86695; 86696; 86704; 86706; 86709; 86780; 86803; 87340; 87389; 87491; 87591

== ENCOUNTER 2024-09-12 10:32 | Outpatient (AMB) | payer OTHER, SELFPAY ==
[2024-09-12 11:17] VITALS: BP 140/90; PULSE 72; TEMP 36.9; O2SAT 98
--- NOTE | 2024-09-12 11:17 | MHC.OFFWIV ---
Intake Vital Signs 09/12/24 11:17 Weight 191 lb BP 140/90 H Blood Pressure Location Lt brachial Position Sitting Pulse 72 Pulse Source Pulse Oximeter Temp 98.5 F Temp Source Oral Pulse Oximetry (%) 98 Oxygen Delivery Method Room Air Intake Visit Reasons: EP Headache/Blurred vision Intake Note: Patient here for headaches that have been daily with blurred vision and has been going on for 2 weeks. Patient Tobacco Use Status: Never used Tobacco Allergies No Known Allergies [No Known Allergies*] Allergy (Verified 09/12/24 11:18) Do you need a note to return to daycare/school/sports/work: No HPI HPI Comments History of Present Illness Details 28 y/o male patient who presents to the walk in clinic with c/o Persistent headaches, blurry visions and elevated BP readings. Pt recently had STI panel done, everything was negative except for Herpes. Pt is worried because he now has Blisters around his mouth and this has been very stressful for him. He has an appointment with Dermatology tomorrow regarding this. Reports Blurry visions for few days now. headaches on/off for several days. Denies chest pains, SOB, and dizziness. He does not recall last time he ever saw an eye doctor. Back in 2020 he saw PCP for this similar reason, who referred him to Neurology - not clear why patient never went. Reports these headaches today are more severe and not the same as back in 2020. Denies head injury or trauma, but admits to being under tremednous stress, because he has an STI - Herpes. [facility] Medical History High cholesterol Fibromyalgia Chronic pain disorder Family History Father No problems noted. Mother No problems noted. Maternal Aunt Cancer Sister No problems noted. Social History Housing: Apartment Alcohol intake: never Patient Tobacco Use Status: Never used Tobacco e-Cigarette/Vaping Use: Never Used Second Hand Smoke Exposure: No service: No Current occupational status: employed Current occupation: [employer] Current occupational exposures/hazards: No Cognitive needs: No Hearing needs: No Vision needs: No Review of Systems Const All systems reviewed & are unremarkable except as noted in HPI and below Physical Exam Vital Signs: Last Vital Signs Temp 98.5 F 09/12/24 11:17 Pulse 72 09/12/24 11:17 BP 140/90 H 09/12/24 11:17 Pulse Ox 98 09/12/24 11:17 Oxygen Delivery Method Room Air 09/12/24 11:17 Const General: cooperative and no acute distress; No comfortable Nutritional Appearance: overweight Orientation/consciousness: patient oriented x3 HEENT Head: Yes normocephalic Eyes Pupils: Equal, round and reactive pupils present EOM: EOMs intact bilaterally Resp Effort & Inspection: normal respiratory effort Auscultation: clear to auscultation bilaterally Cardio Heart sounds: S1 normal heart sound present and S2 normal heart sound present Neuro General: patient oriented x3 Cranial nerves: Yes Equal, round and reactive pupils present Assessment & Plan Assessment & Plan (1) Chronic headaches: Code(s): R51.9 - Headache, unspecified; G89.29 - Other chronic pain Qualifiers: Headache type: unspecified Intractability: not intractable Qualified Code(s): R51.9 - Headache, unspecified; G89.29 - Other chronic pain Plan: Acetaminophen for pain relief Rest in a Dark quiet room F/U with PCP (2) Blurry vision, bilateral: Code(s): H53.8 - Other visual disturbances Plan: Probably related to his elevated BPs Advised to f/u with eye doctor (3) Elevated blood pressure reading: Code(s): R03.0 - Elevated blood-pressure reading, without diagnosis of hypertension Plan: Will start a small dose of Proponolol. Could use Proponolol for headache preventions. Medications: New propranolol 60 mg PO Q12H 30 tabs 0RF G89.29 - Other chronic pain, R03.0 - Elevated blood-pressure reading, without diagnosis of hypertension, R51.9 - Headache, unspecified Coding Level of Care Code Est Pt Level 3 (82590) Diagnoses Chronic nonintractable headache, unspecified headache type R51.9; G89.29 Headache type: unspecified Intractability: not intractable Blurry vision, bilateral H53.8 Elevated blood pressure reading R03.0 Time Spent (min) 15
== END 2024-09-12 13:50 | disposition home or self-care (01) ==
PROVIDERS: PCP Nurse Practitioner Family; Visit Provider Nurse Practitioner Family
DX: R51.9 Headache, unspecified (principal); G89.29 Other chronic pain; H53.8 Other visual disturbances; R03.0 Elevated blood-pressure reading, without diagnosis of hypertension

== ENCOUNTER → 2024-09-12 10:32 | Outpatient (BNVA) | payer OTHER, SELFPAY | PROVIDERS: PCP Nurse Practitioner Family; Visit Provider Nurse Practitioner Family | DX: R51.9 Headache, unspecified (principal); G89.29 Other chronic pain; H53.8 Other visual disturbances; R03.0 Elevated blood-pressure reading, without diagnosis of hypertension | CPT/HCPCS: 99212 ==

== ENCOUNTER 2024-09-27 14:52 | Outpatient (AMB) | payer OTHER, SELFPAY ==
--- NOTE | 2024-09-27 07:38 | MHC.OFFVIS ---
Intake Visit Reasons: discuss concerns Allergies No Known Allergies [No Known Allergies*] Allergy (Verified 09/12/24 11:18) HPI HPI discuss concerns: Details: History of Present Illness The patient is a 28-year-old male presenting with oral lesions that initially developed approximately 3 to 4 months ago. He describes these lesions as small red bumps localized on the sides of his mouth, accompanied by burning sensations and numbness. The lesions have shown a slow, progressive spread. A public opinion survey taker previously consulted diagnosed the lesions as Manish spots and considered them benign, advising that a biopsy was unnecessary. The public opinion survey taker reportedly ruled out herpes as the cause of these lesions. 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 He links the onset to potential transmission from a partner, who subsequently passed it to another individual. The patient expresses concern over the persistence of the condition and its impact on daily interactions. Review of Systems - Dermatological: Reports small red bumps that burn and are spreading. - Oral/ENT: Reports numbness and burning in the areas where the bumps are present. Plan - Oral lesions: - Await dermatology notes to confirm previous assessment and management plans. - Consider obtaining a biopsy for definitive diagnosis if the situation does not improve or further clarification is needed. - Herpes Simplex Virus Type 1: - Monitor lesion progression since the public opinion survey taker has ruled out herpes as the cause of the current oral findings. - Educate on transmission, self-care measures, and safe practices to avoid spreading to others. - Possible viral dermatitis: - Further investigate if dermatology's notes suggest alternative or additional diagnoses. - Consider antiviral or additional treatment options as indicated after reviewing public opinion survey taker's findings. Patient was informed and verbally consented to the use of an ambient scribe for clinic note documentation during this visit. Discussion Notes I discussed the benign nature of Manish spots and reassured the patient that they are typically not a cause for concern. However, I acknowledged his discomfort and agreed to review the notes from the public opinion survey taker to ensure nothing was overlooked and to determine if any further interventions, such as a biopsy, are necessary. I explained the significance of a biopsy in providing an accurate diagnosis at a microscopic level but noted that the public opinion survey taker did not recommend it initially. We discussed the possibility of a viral cause, referencing molluscum contagiosum, although emphasizing that the public opinion survey taker should already have ruled it out. Once I receive the dermatology notes, I will better understand the potential need for an oral surgery consult. I acknowledged the patient's concerns about transmission and our joint desire to resolve this issue promptly. Patient Instructions - Follow-up once dermatology notes are received for further analysis and management. - Avoid direct contact with lesions to prevent transmission to others. - Monitor lesions for changes in appearance or symptoms, and report any significant developments. - Maintain oral hygiene and avoid irritants that may exacerbate the lesions. [facility] Medical History High cholesterol Fibromyalgia Chronic pain disorder Family History (Reviewed 07/12/24 @ :25 by Cailin Mason MD) Father No problems noted. Mother No problems noted. Maternal Aunt Cancer Sister No problems noted. Social History Housing: Apartment Alcohol intake: never Patient Tobacco Use Status: Never used Tobacco e-Cigarette/Vaping Use: Never Used Second Hand Smoke Exposure: No service: No Current occupational status: employed Current occupation: [employer] Current occupational exposures/hazards: No Cognitive needs: No Hearing needs: No Vision needs: No Telehealth Telehealth Telehealth Platform: [facility] Location of provider rendering services: practice address Location of patient: address on file Patient Identification confirmed using: Name, : Yes Telehealth method: video Patient verbally consented to treatment: Yes Patient verbally consented to billing insurance company: Yes Patient informed of any privacy concerns related to visit: Yes Minutes spent on Phone/Video with Pt.: 12 Assessment & Plan Assessment & Plan (1) Mouth lesion: Code(s): K13.70 - Unspecified lesions of oral mucosa Category: Medical Plan . Coding Level of Care Code Tele Est Pt Level 3 (01488) Diagnoses Mouth lesion K13.70
== END 2024-09-27 14:53 | disposition home or self-care (01) ==
LOC: HO.HMCC 14:52
PROVIDERS: PCP Nurse Practitioner Family; Visit Provider Nurse Practitioner Family
DX: K13.70 Unspecified lesions of oral mucosa (principal)

== ENCOUNTER 2024-10-03 07:57 | Outpatient (AMB) | payer OTHER, SELFPAY ==
--- NOTE | 2024-10-03 08:06 | AM.OFFWIN_ITS ---
Intake Vital Signs 10/03/24 08:12 Weight 192 lb BP 132/80 Blood Pressure Location Rt brachial Position Sitting Pulse 80 Pulse Source Pulse Oximeter Pulse Oximetry (%) 97 Oxygen Delivery Method Room Air Intake Visit Reasons: EP stomach Pain Intake Note: Patient here for stomach pain that has been present for about 2-3 weeks, denies any diarrhea or vomiting. Patient Tobacco Use Status: Never used Tobacco Allergies No Known Allergies [No Known Allergies*] Allergy (Verified 10/03/24 08:11) Do you need a note to return to daycare/school/sports/work: No HPI HPI Comments History of Present Illness Details History of Present Illness The patient is a 28-year-old male presenting with abdominal pain. He reports experiencing this pain on and off for the past two to three weeks, accompanied by numbness, tingling, burning sensations, and occasional pinching pain, primarily at night. The patient notes the presence of a protruded area in the abdomen which has been observable for approximately three to four years. He initially interpreted this anomaly as a physical peculiarity but has noted recent enhanced discomfort and prominence. He denies any fever, diarrhea, or vomiting but acknowledges mild nausea. His bowel movements are regular, with the last occurrence earlier today. The patient lays emphasis on the persistent nature of the abdominal protrusion, which does not reduce upon lying down. There is no history of hernia diagnosis or prior imaging studies conducted for this concern. He reports no urinary symptoms, including dysuria or hematuria. Additionally, he mentions a scheduled future appointment with a spinning frame tender in November, suggesting prior concern for gastrointestinal issues. Physical Exam General: Cooperative, healthy appearing, comfortable, no acute distress and well developed Orientation: Patient oriented x3 Limitations: No limitations Head: Normal to inspection Ears: Hearing grossly normal bilaterally Nose: Normal external nose present Face and sinus: Normal facial exam Eyes: Appearance normal, both eyes and all related structures Neck: Normal visual inspection and Yes full ROM Respiratory: Normal respiratory effort and able to speak in complete sentences. GI: soft, no TTP, at 9 o'clock umbilicus pt has reducible abdominal hernia Skin: No rashes or lesions noted Neuro: Patient oriented x3 Extremities: Normal to inspection [facility] Medical History High cholesterol Fibromyalgia Chronic pain disorder Family History Father No problems noted. Mother No problems noted. Maternal Aunt Cancer Sister No problems noted. Social History Housing: Apartment Alcohol intake: never Patient Tobacco Use Status: Never used Tobacco e-Cigarette/Vaping Use: Never Used Second Hand Smoke Exposure: No service: No Current occupational status: employed Current occupation: [employer] Current occupational exposures/hazards: No Cognitive needs: No Hearing needs: No Vision needs: No Physical Exam Vital Signs: Last Vital Signs Pulse 80 10/03/24 08:12 BP 132/80 10/03/24 08:12 Pulse Ox 97 10/03/24 08:12 Oxygen Delivery Method Room Air 10/03/24 08:12 Assessment & Plan Assessment & Plan (1) Periumbilical pain: Code(s): R10.33 - Periumbilical pain Plan: Plan - Discussed the high likelihood of an abdominal hernia, notably due to abnormal abdominal wall protrusion, which indicates a reducible hernia. - Recommended obtaining an abdominal CT to assess the extent and nature of the protrusion.Will message pts PCP - If signs of complications such as incarceration or strangulation arise severe pain, fever, heart palpitations, diaphoresis, advised immediate emergency care by going to the Emergency Department. - Outpatient management approach suggested with possible referral to general surgery for further evaluation and discussed options based on imaging results. - Reinforced the importance of monitoring the symptoms and instructed the patient to seek urgent care if significant pain or febrile episodes develop. Patient was informed and verbally consented to the use of an ambient scribefor clinic note documentation during this visit. Coding Level of Care Code Est Pt Level 4 (09359) Diagnoses Periumbilical pain R10.33
[2024-10-03 08:12] VITALS: BP 132/80; PULSE 80; O2SAT 97
== END 2024-10-03 08:45 | disposition home or self-care (01) ==
PROVIDERS: PCP Nurse Practitioner Family; Visit Provider Physician Assistant
DX: R10.33 Periumbilical pain (principal)

== ENCOUNTER → 2024-10-03 07:57 | Outpatient (BNVA) | payer OTHER, SELFPAY | PROVIDERS: PCP Nurse Practitioner Family; Visit Provider Physician Assistant | DX: R10.33 Periumbilical pain (principal) | CPT/HCPCS: 99212 ==

== ENCOUNTER 2024-11-10 14:29 | Outpatient (REF) | payer OTHER, SELFPAY ==
--- NOTE | ~2024-11-10 | CT_ITS ---
CLINICAL HISTORY: R10.33 - Periumbilical pain CT abdomen and pelvis without IV contrast. Oral contrast provided. Comparison: None Findings: Lung bases show no active disease. No dependent layering pleural effusions. The heart is not enlarged. Coronary artery calcifications None. Liver normal size, attenuation and contour. Physiologic distention of the gallbladder with no radiopaque gallstones. Homogeneous attenuation of the pancreas. No splenomegaly. Normal adrenal glands. 2 mm right upper pole and 1 mm left upper pole nonobstructing caliceal Bowel demonstrates a nonobstructive pattern. No free air. Normal appendix No intraperitoneal, retroperitoneal pelvic or inguinal masses lymphadenopathy or abnormal fluid collections. Increased stool burden. Oral contrast reaches the ascending colon. No significant diverticular disease. Normal distention of the urinary bladder. No prostatomegaly. Subcentimeter incidental fat containing umbilical hernia No vertebral body compression fractures or spondylolisthesis. No bony destructive lesions. Impression: 1. Normal appendix. Increased stool burden. No evidence of mechanical bowel obstruction. 2. Subcentimeter fat containing umbilical hernia. No definite evidence of omental infarction. 3. Punctate nonobstructing caliceal stones upper pole both kidneys. This document has been electronically signed by: Milton Armstrong MD on 11/13/2024 09:30:16
== END 2024-11-10 14:30 | disposition home or self-care (01) ==
LOC: HO.CT 14:29
PROVIDERS: PCP Nurse Practitioner Family; Visit Provider Nurse Practitioner Family
DX: R10.33 Periumbilical pain (principal)
CPT/HCPCS: 74176

== ENCOUNTER → 2024-11-10 14:34 | Outpatient (BNV) | payer OTHER, SELFPAY | PROVIDERS: PCP Nurse Practitioner Family; Visit Provider Radiology Diagnostic Radiology | DX: N20.0 Calculus of kidney (principal); K42.9 Umbilical hernia without obstruction or gangrene | CPT/HCPCS: 74176 ==

== ENCOUNTER 2024-11-16 08:04 | Outpatient (AMB) | payer OTHER, SELFPAY ==
[2024-11-16 08:16] VITALS: BMI 26.6
--- NOTE | 2024-11-16 08:16 | A.OFFVIS_ITS ---
Vital Signs 11/16/24 08:16 Height 5 ft 11 in Weight 191 lb BMI 26.6 Intake Visit Reasons: Umbilical hernia Intake Note: This patient presents for umbilical hernia. Pt c/o; reports bulge, intermittent pain, no changes in bowel habits. Capital Equipment Specialist Required: No Accompanied by: Self / Same As Patient Allergies No Known Allergies [No Known Allergies*] Allergy (Verified 11/16/24 08:24) Medication List - Last Reconciled 11/16/24 by Davis Voss MD barium sulfate 2%(w/v) (Readi-Cat 2) 450 mL orally; drink 1 bottle 2 hours prior to exam, drink 1 bottle 1 hour prior to exam doxycycline hyclate 100 mg PO BID 14 days HPI HPI Umbilical hernia: Details: 28-year-old male referred for an umbilical hernia. He says that he has had this periumbilical pain for several years now. He feels that this has worsened recently He was sent for a CT scan by his primary care physician. Review of this showed a small umbilical hernia that was fat containing. He also says he has a long history of reflux disease. He says he is in good health overall. [facility], [facility] Medical History High cholesterol Fibromyalgia Chronic pain disorder Family History Father No problems noted. Mother No problems noted. Maternal Aunt Cancer Sister No problems noted. Social History Housing: Apartment Alcohol intake: never Patient Tobacco Use Status: Never used Tobacco e-Cigarette/Vaping Use: Never Used Second Hand Smoke Exposure: No service: No Current occupational status: employed Current occupation: [employer] Current occupational exposures/hazards: No Cognitive needs: No Hearing needs: No Vision needs: No Review of Systems Const Denies chills and Denies fever(s) Card Denies chest pain, Denies dyspnea and Denies dyspnea on exertion Resp Denies cough, Denies dyspnea and Denies dyspnea on exertion GI Denies hematochezia and Denies change in bowel habits Denies hematuria and Denies difficulty urinating Musc Denies back pain and Denies limited range of motion Neuro Denies focal weakness and Denies convulsions Psych Denies depression and Denies mood swings Physical Exam Vital Signs: BMI result Body Mass Index 26.6 Const General: comfortable and no acute distress Orientation/consciousness: patient oriented x3 Neck Neck: Yes no lymphadenopathy Resp Auscultation: clear to auscultation bilaterally Cardio Rhythm: regular rhythm GI Other: Very small umbilical hernia, felt only with Valsalva Palpation (GI): Soft to palpation, nontender and no guarding Neuro General: patient oriented x3 Assessment & Plan Assessment & Plan (1) Umbilical hernia: Comment: small hernia on ct Code(s): K42.9 - Umbilical hernia without obstruction or gangrene Category: Medical Plan: He describes periumbilical pain for many years. He did have a CAT scan done showing a very small fat containing hernia. The defect was less than 1 cm in diameter I explained to him the option of repair. I explained the technique of repair with possible mesh although I feel that mesh may not be necessary because of the very small diameter of the fascial defect. I reviewed the risks including but not limited to bleeding, infections, bowel injury, recurrence, postop pain, as well as the benefits and alternatives. I discussed with him what to expect postoperatively He also understands that repair of the hernia will not help with this chronic reflux disease. He wants to proceed with hernia repair in view of his periumbilical pain. Coding Level of Care Code New Pt Level 3 (29937) Diagnoses Umbilical hernia K42.9
== END 2024-11-16 08:42 | disposition home or self-care (01) ==
PROVIDERS: PCP Nurse Practitioner Family; Visit Provider Surgery
DX: K42.9 Umbilical hernia without obstruction or gangrene (principal)
CPT/HCPCS: 99203

== ENCOUNTER → 2024-11-16 08:04 | Outpatient (BNVA) | payer OTHER, SELFPAY | PROVIDERS: PCP Nurse Practitioner Family; Visit Provider Surgery | DX: K42.9 Umbilical hernia without obstruction or gangrene (principal) | CPT/HCPCS: 99202 ==

== ENCOUNTER 2024-11-21 09:00 | Outpatient (AMB) | payer OTHER, SELFPAY ==
[2024-11-21 09:01] VITALS: BP 118/70; PULSE 81; TEMP 36.7; O2SAT 98; BMI 27.1
--- NOTE | 2024-11-21 09:01 | MHC.PC.OV ---
Vital Signs 11/21/24 09:01 Height 5 ft 11 in Weight 194 lb BMI 27.1 BP 118/70 Blood Pressure Location Lt brachial Position Sitting Pulse 81 Pulse Source Pulse Oximeter Temp 98.0 F Temp Source Oral Pulse Oximetry (%) 98 Oxygen Delivery Method Room Air Intake Visit Reasons: Annual PE- NEEDS PHQ-9 W/ PROVIDER INTERPRETATION Intake Note: pt is here for PE Apartment Property Manager Required: No Accompanied by: Self / Same As Patient Allergies No Known Allergies [No Known Allergies*] Allergy (Verified 11/21/24 09:25) Medication List - Last Reconciled 11/21/24 by WEN Gorman No Known Home Meds Tobacco use date assessed: 11/21/24 Dental Screening Dental Screen Date: 11/21/24 Did you have a dental visit in the last 12 months?: Yes Did you have a dental problem in the last 6 months where you did not have access to dental care?: No Was dental information given to patient?: Patient has dentist HPI Annual PE- NEEDS PHQ-9 W/ PROVIDER INTERPRETATION HPI Details History of Present Illness The patient is a 28-year-old male presenting for an evaluation of general health concerns. During the conversation, he explicitly denied experiencing all symptoms, including soreness, chest pain, fever, chills, constipation, diarrhea, and the presence of blood in the stool. It is important to note that the denial of symptoms was consistent throughout the conversation. He has not reported any past or ongoing medical conditions related to the symptoms listed. Historical information related to preventative health measures, current medications, or any recent health incidents was not provided. Health Maintenance Social History Review of Systems - General: Denies fever and chills. - Cardiovascular: Denies chest pain. - Gastrointestinal: Denies constipation, diarrhea, and blood in stool. - Neurological/Psychiatric: Denies suicidal and homicidal ideation. Physical Exam General: Cooperative, healthy appearing, comfortable, no acute distress and well developed Orientation: Patient oriented x3 Limitations: No limitations Head: Normal to inspection Ears: Cerumen noted bilaterally in ear canals, after ear lavage, TMs easily seen Nose: Normal external nose present Face and sinus: Normal facial exam Eyes: Appearance normal, both eyes and all related structures Neck: Normal visual inspection and Yes full ROM Respiratory: Normal respiratory effort and able to speak in complete sentences. Clear to auscultation bilaterally Cardiovascular: Regular rate and rhythm. Normal S1 and S2 GI: Normal to inspection. Soft to palpation and nontender Skin: No rashes or lesions noted Neuro: Patient oriented x3 Extremities: Normal to inspection Results Plan Discussion Notes During the visit, I confirmed with the patient that he does not experience any symptoms related to soreness, chest pain, fever, chills, digestive issues, or significant psychological concerns such as suicidal or homicidal ideation. No specific management plans, interventions, or follow-up care requirements were discussed in this visit. Patient Instructions - Continue with daily activities as usual. - Monitor for any new symptoms or changes in existing health status. - Seek medical attention if any symptoms arise or worsen. [facility] Medical History High cholesterol Fibromyalgia Chronic pain disorder Surgical History (Updated 11/21/24 @ 09:02 by Yanick Gordon CMA) No pertinent past surgical history Family History Father No problems noted. Mother No problems noted. Maternal Aunt Cancer Sister No problems noted. Social History Housing: Apartment Alcohol intake: never Patient Tobacco Use Status: Never used Tobacco e-Cigarette/Vaping Use: Never Used Second Hand Smoke Exposure: No service: No Current occupational status: employed Current occupation: [employer] Current occupational exposures/hazards: No Cognitive needs: No Hearing needs: No Vision needs: No Questionnaire PHQ-9 Over the last 2 weeks, how often have you been bothered by any of the following problems? 1. Little interest or pleasure in doing things: not at all 2. Feeling down, depressed, or hopeless: not at all 3. Trouble falling or staying asleep, or sleeping too much: not at all 4. Feeling tired or having little energy: not at all 5. Poor appetite or overeating: not at all 6. Feeling bad about yourself - or that you are a failure or have let yourself or your family down: not at all 7. Trouble concentrating on things, such as reading the newspaper or watching television: not at all 8. Moving or speaking so slowly that other people could have noticed. Or the opposite - being so fidgety or restless that you have been moving around a lot more than usual: not at all 9. Thoughts that you would be better off or of hurting yourself in some way: not at all Total score: 0 Depression Screening Interpretation: Negative Depression Screening Done: Yes 52923 - PHQ-9 Billing: Yes Source: Developed by Drs. Jose Ramirez, Jennie Stanton, Ildefonso Montes and colleagues, with an educational bonnie from [employer]. Thrive Questionnaire Date Thrive assessed: 11/21/24 I am a: Patient What is your living situation today?: I have a steady place to live Within the past 12 months, did the food you bought not last and you didn't have the money to get more?: I choose not to answer this question Within the past 12 months, did you worry whether your food would run out before you got money to buy more?: I choose not to answer this question Do you have trouble paying for medicines?: No Do you have trouble getting transportation to medical appointments?: No Do you have trouble paying your heating and electricity bill?: Yes Do you have trouble taking care of your child, family member or friend?: I choose not to answer this question Do you have trouble with day-to-day activities such as bathing, preparing meals, shopping, managing finances, etc.?: No Are you currently unemployed and looking for a job?: No Are you interested in more education?: Yes Please select the resources that you would like help with: None Currently or been in a relationship where the following occur: I choose not to answer THRIVE Score: 1 AUDIT C Alcohol Use Questionnaire (AUDIT-C) 1. How often do you have a drink containing alcohol?: Never 3. How often do you have six or more drinks on one occasion?: Never Total Score: 0 Score Reviewed/Action Taken: Yes VIDHYA-7 AMB Questionnaire VIDHYA-7 Date VIDHYA - 7 assessed: 11/21/24 Feeling nervous, anxious, or on edge: 1 = Several days Not being able to stop or control worryin = Several days Worrying too much about different things: 1 = Several days Trouble relaxin = Several days Being so restless that it is hard to sit still: 1 = Several days Becoming easily annoyed or irritable: 0 = Not at all Feeling afraid as if something awful might happen: 1 = Several days Total VIDHYA-7 score (0-4 normal; 5-9 mild; 10-14 moderate; 15-21 severe): 6 Source: Developed by Drs. Jose Ramirez, Jennie Stanton, Ildefonso Montes and colleagues, with an educational bonnie from [employer]. VIDHYA-7 Assessment Billing VIDHYA-7 Assessment Tool: VIDHYA-7 Assessment 33477 Physical exam (Primary Care) Vital Signs: Last Vital Signs Temp 98.0 F 11/21/24 09:01 Pulse 81 11/21/24 09:01 BP 118/70 11/21/24 09:01 Pulse Ox 98 11/21/24 09:01 Oxygen Delivery Method Room Air 11/21/24 09:01 BMI result Body Mass Index 27.1 Tobacco/Smoking Status: Tobacco use Status Tobacco use date assessed 11/21/24 11/21/24 09:07 Patient Tobacco Use Status Never used Tobacco 11/21/24 09:07 e-Cigarette/Vaping Use Never Used 11/21/24 09:07 PHQ-9: PHQ-9 Score PHQ-9: Total score 0 11/21/24 09:07 Depression Screening Interpretation: Negative Thrive Assessment: Date of Thrive Assessment Date Thrive assessed 11/21/24 11/21/24 09:07 Currently or been in a relationship where the following occur: I choose not to answer Office Procedures Cerumen Removal From which ear canal was the cerumen removed: bilateral Removal: irrigation Notes: patient tolerated procedure well, no complications and ear canal clear 60945-Bvj Irrigation/Lavage Coding Level of Care Code Est Pt Prev Care 18-39y(83777) Diagnoses Physical exam Z00.00 Impacted cerumen of both ears H61.23 CPT Codes Office Procedure - CPT: 98083-Mxz Irrigation/Lavage ([id number]) Additional Codes VIHDYA-7 Assessment Billing - VIDHYA-7 Assessment Tool: VIDHYA-7 Assessment 09398 ([id number]) PHQ-9 - 42968 - PHQ-9 Billing: Yes ([id number]) Assessment & Plan Assessment & Plan (1) Physical exam: Code(s): Z00.00 - Encounter for general adult medical examination without abnormal findings Category: Medical (2) Impacted cerumen of both ears: Code(s): H61.23 - Impacted cerumen, bilateral Category: Medical Plan . Orders: Orders Complete Blood Count Auto Diff Today Z00.00 - Encounter for general adult medical examination without abnormal findings Comprehensive [place]. Panel Fast Today Z00.00 - Encounter for general adult medical examination without abnormal findings UA CC w/rflx Micro + Cult Today Z00.00 - Encounter for general adult medical examination without abnormal findings TSH reflex Free T4 Today Z00.00 - Encounter for general adult medical examination without abnormal findings Lipid Panel Today Z00.00 - Encounter for general adult medical examination without abnormal findings
== END 2024-11-21 10:14 | disposition home or self-care (01) ==
PROVIDERS: PCP Nurse Practitioner Family; Visit Provider Nurse Practitioner Family
DX: Z00.00 Encounter for general adult medical examination without abnormal findings (principal); H61.23 Impacted cerumen, bilateral

== ENCOUNTER → 2024-11-21 09:00 | Outpatient (BNVA) | payer OTHER, SELFPAY | PROVIDERS: PCP Nurse Practitioner Family; Visit Provider Nurse Practitioner Family | DX: Z00.00 Encounter for general adult medical examination without abnormal findings (principal); H61.23 Impacted cerumen, bilateral | CPT/HCPCS: 69209; 96127; 99395 ==

== ENCOUNTER 2024-11-22 07:18 | Outpatient (REF) | payer OTHER, SELFPAY ==
[2024-11-22 09:53] LABS: MANUAL DIFF FLAG NO
[2024-11-22 09:56] LABS: Basophils Absolute Auto 0.1 X10*3/uL (0.0-0.2); Basophils Percent Auto 0.8 % (0-2); Eosinophils Absolute Auto 0.1 X10*3/uL (0.0-0.4); Eosinophils Percent Auto 1.5 % (0-4); Hemoglobin 15.5 g/dl (14.0-18.0); Imm Gran Abs Auto 0.02 X10*3/uL (0.00-0.03); Imm Gran Pct Auto 0.3 % (0.0-0.4); Lymphocytes Absolute Auto 2.1 X10*3/uL (1.2-4.9); Lymphocytes Percent Auto 31.4 % (20-40); Mean Corpuscular HGB Conc 33.7 g/dl (31.0-36.0); Mean Corpuscular Hemoglobin 29.1 pg (27.0-33.0); Mean Corpuscular Volume 86.3 fL (80.0-98.0); Mean Platelet Volume 12.6 fL (9.4-12.4); Monocytes Absolute Auto 0.4 X10*3/uL (0.1-1.2); Monocytes Percent Auto 6.4 % (2-11); Neutrophils Absolute Auto 3.9 x10*3/uL (2.0-8.3); Neutrophils Percent Auto 59.6 % (45-73); Platelet Count 250 X10*3/uL (160-400); Red Blood Count 5.33 X10*6/uL (4.60-5.80); Red Cell Distribution Width 12.4 % (11.0-16.0); White Blood Count 6.6 X10*3/uL (4.8-10.8)
[2024-11-22 10:04] LABS: Appearance Urine Clear; Color Urine Yellow; Glucose Urine UA Negative (Negative); Leukocyte Esterase Urine Negative (Negative); Nitrite Urine Negative (Negative); PH 6.5 (5.0-9.0); Specific Gravity - Urine 1.025 (1.005-1.025); Urine Blood Negative (Negative); Urine Ketones Negative (Negative); Urine Protein Negative (Neg-Trace)
[2024-11-22 10:29] LABS: Alanine Aminotransferase 39 U/L (0-40); Albumin Level 4.6 g/dL (3.5-5.0); Alkaline Phosphatase 77 U/L (39-117); Anion Gap 12 (12-20); Aspartate Amino Transferase 26 U/L (5-37); Bilirubin Total 0.4 mg/dL (0.0-1.0); Blood Urea Nitrogen 17 mg/dL (9-16); Calcium 9.6 mg/dL (8.4-10.2); Carbon Dioxide 27 mmol/L (22-29); Chloride 106 mmol/L (96-108); Cholesterol 205 mg/dL (<200); Estimated Glomerular Filt Rate > 60; Glucose Fasting 89 mg/dL (60-99); HDL Cholesterol 47 mg/dL (>40); LDL Cholesterol Calculated 137 mg/dL (<100); Potassium 3.7 mmol/L (3.3-5.1); Sodium 141 mmol/L (135-145); TSH reflex Free T4 0.56 uIU/mL (0.32-4.0); Total Protein 7.9 g/dL (6.5-8.0); Triglycerides 108 mg/dL (<150)
== END 2024-11-22 07:19 | disposition home or self-care (01) ==
LOC: HO.HMGCLDS 07:18
PROVIDERS: PCP Nurse Practitioner Family; Visit Provider Nurse Practitioner Family
DX: Z00.00 Encounter for general adult medical examination without abnormal findings (principal)
CPT/HCPCS: 36415; 80053; 80061; 81003; 84443; 85025

== ENCOUNTER 2024-12-15 08:05 | Day surgery (SDC) | payer OTHER, SELFPAY ==
[2024-12-13 11:53] VITALS: BMI 26.6
--- NOTE | 2024-12-13 14:59 | P.CONAN_ITS ---
Documented by User: Rosa Ahumada NP 12/13/24 15:00 HPI - Anesthesia Eval Consult details Narrative: 29yo M for Repair Hernia Umbilical Reducible with mesh PMFSH Active Problems Active Problems: All Active Problems Umbilical hernia (Acute) Periumbilical pain (Acute) Mouth lesion (Acute) Screening for STD (sexually transmitted disease) (Acute) Facial herpetic lesions (Acute) Chest discomfort (Acute) Epigastric pain (Acute) Herpes simplex type 1 infection (Acute) Tinea (Acute) Long COVID (Acute) SOB (shortness of breath) (Acute) Physical exam (Acute) Chest pain (Acute) Dyslipidemia (Acute) Impacted cerumen of both ears (Acute) Neuropathy (Acute) Xerosis of skin (Acute) Chronic headaches (Acute) Medication refill (Acute) Fibromyalgia affecting multiple sites (Acute) Scalp lesion (Acute) Past Medical History Medical History GERD (gastroesophageal reflux disease) High cholesterol Fibromyalgia Chronic pain disorder Family History Family History Father No problems noted. Mother No problems noted. Maternal Aunt Cancer Sister No problems noted. Surgical History Surgical History No pertinent past surgical history Social History Social History Housing: Apartment Alcohol intake: never Patient Tobacco Use Status: Never used Tobacco e-Cigarette/Vaping Use: Never Used Second Hand Smoke Exposure: No Use of substances other than those prescribed or required for medical reasons: No Are you DNR?: No Advance Directives: No Advance Directives Information Provided: Yes service: No Current occupational status: employed Current occupation: [employer] Current occupational exposures/hazards: No Cognitive needs: No Hearing needs: No Vision needs: No Meds Allergies Allergy/AdvReac Type Severity Reaction Status Date / Time No Known Allergies Allergy Verified 11/21/24 09:25 [No Known Allergies*] Exam Height,Weight and Vital Signs: Height 5 ft 11 in Weight 86.636 kg Assessment and Plan Assessment Anesthesia Assessment: Chart Reviewed Documented by User: Linn Woods MD 12/15/24 09:29 [facility] Active Problems Active Problems: All Active Problems Umbilical hernia (Acute) Periumbilical pain (Acute) Mouth lesion (Acute) Screening for STD (sexually transmitted disease) (Acute) Facial herpetic lesions (Acute) Chest discomfort (Acute) Epigastric pain (Acute) Herpes simplex type 1 infection (Acute) Tinea (Acute) Long COVID (Acute) SOB (shortness of breath) (Acute) Physical exam (Acute) Chest pain (Acute) Dyslipidemia (Acute) Impacted cerumen of both ears (Acute) Neuropathy (Acute) Xerosis of skin (Acute) Chronic headaches (Acute) Medication refill (Acute) Fibromyalgia affecting multiple sites (Acute) Scalp lesion (Acute) Past Medical History Medical History GERD (gastroesophageal reflux disease) High cholesterol Fibromyalgia Chronic pain disorder Family History Family History Father No problems noted. Mother No problems noted. Maternal Aunt Cancer Sister No problems noted. Family history of problems with anesthesia: No Surgical History Surgical History No pertinent past surgical history History of Problems with Anesthesia: No Social History Social History Housing: Apartment Alcohol intake: never Patient Tobacco Use Status: Never used Tobacco e-Cigarette/Vaping Use: Never Used Second Hand Smoke Exposure: No Use of substances other than those prescribed or required for medical reasons: No Are you DNR?: No Advance Directives: No Advance Directives Information Provided: Yes service: No Current occupational status: employed Current occupation: [employer] Current occupational exposures/hazards: No Cognitive needs: No Hearing needs: No Vision needs: No Meds Allergies Allergy/AdvReac Type Severity Reaction Status Date / Time No Known Allergies Allergy Verified 11/21/24 09:25 [No Known Allergies*] Exam Height,Weight and Vital Signs: Height 5 ft 11 in Weight 86.636 kg Vital Signs Temp Pulse Resp BP Pulse Ox O2 Del Method 12/15/24 09:00 98.9 F 76 16 133/85 99 Room Air Airway Mallampati Class: III (Small mouth) TM Dist: >3cm Neck ROM: Full Loose/Missing/Broken Teeth: Yes (Missing 3 molars. Denies broken or loose teeth) Heart: RRR Lungs: CTAB Other: Anxious Assessment and Plan Assessment Anesthesia Assessment: Anesthesia Plan Discussed and Chart Reviewed Final Anesthetic Review Family History of Problems with Anesthesia: No History of Problems with Anesthesia: No NPO: Yes ASA Class: II Final Preanesthetic Review: No Changes in Pt Med Stat, Meds/Allgs Chart Reviewed, Consent Obtained/Reviewed and Anes Risks/Benef Reviewed Patient Risk: Low Procedure Risk: Low Assessment/Block/Sedation in SS: Assess/Block/Sedation-SS Anesthetic Plan Anesthetic Plan: GA Disposition: Standard PACU
[2024-12-15] VITALS (8 sets, daily range): BP systolic 100–133; BP diastolic 56–85; PULSE 64–80; RESP 14–16; TEMP 35.9–37.2; O2SAT 91–99; BMI 27.4
[2024-12-15] MEDS: Lactated Ringers 1,000 ML 100 ML IVCONT (09:05)
--- NOTE | 2024-12-15 09:14 | MHC.SHP ---
Pre-Procedural Eval Section A - 24 Hr Update-Section A only Date of Service: 12/15/24 The patient is an INPATIENT: No Changes since office visit: No Cold of Flu in the past 2 weeks, No New Medical Problems, No Changes in Medication and No Patient answered all questions The patient has been examined within 24 hours of the surgical procedure. The History & Physical has been completed within 30 days and I have reviewed it.: Yes Section B - Complete if H&P > 30 days Chief Complaint: Umbilical hernia without obstruction or gangrene Allergies: Allergies Allergy/AdvReac Type Severity Reaction Status Date / Time No Known Allergies Allergy Verified 11/21/24 09:25 [No Known Allergies*] Plan I have reviewed the history and physical and performed a pertinent physical examination on my patient. No changes have occurred unless specified. Time Spent With Patient Time: Total time managing care of this patient today ____ minutes.
--- NOTE | 2024-12-15 09:59 | P.OP_ITS ---
Operative Note Operative Note Date of Service: 12/15/24 Narrative: Preop diagnosis: Umbilical hernia, reducible Postop diagnosis: The same Procedure: Repair of umbilical hernia Surgeon: Davis Voss MD collections assistant: ITZEL Childers The patient is a 29 year male noted to have a small umbilical hernia, fat- containing on his CAT scan. He had been complaining of some periumbilical pain. He therefore wanted to proceed with umbilical hernia repair. He understood the technique of the planned procedure as well as the risks, benefits, and alternatives He was brought to the operating room. He was placed supine under general anesthesia via laryngeal mask airway. The abdomen was prepped and draped in the usual sterile fashion. A surgical time-out was done. The patient received cefazolin 2 g IV preoperatively I infiltrated the planned line of incision with lidocaine 1%. I made a transverse curvilinear incision on the supraumbilical margin with a blade 15. This was carried down with electrocautery through the full-thickness of the skin and subcutaneous fat. I then proceeded to gently dissect the umbilicus off of the rest of the fascia using sharp dissection with Metzenbaum scissors until I was able to lift this completely as a flap. We were able to then visualize the umbilical hernia which was fat containing. I gently dissected this off of the rest of the umbilicus and the umbilical defect until we are able to completely reduce this. The umbilical defect was very small, about 7 mm in size. Therefore closed this with a [id number] Maxon 1 stitch, making sure that there were no bowel loops or omentum caught by the sutures The umbilicus was tacked down to the fascia with a Polysorb 3-0 stitch to re- create the dimple The subcutaneous layer was closed with a Polysorb 3-0 simple interrupted sutures. Skin closure was achieved with Polysorb 4-0 subcuticular running stitch. The area was infiltrated with Marcaine 0.5% for postop analgesia. Dressings were applied. The procedure was completed The patient tolerated the procedure well. There were no immediate complications. Initial and final counts of sponges and instruments were correct. Estimated blood loss was was less than 10 cc. The patient was extubated without difficulty then transferred to the recovery room with stable vital signs.
== END 2024-12-15 11:18 | disposition home or self-care (01) ==
PROVIDERS: PCP Nurse Practitioner Family; Visit Provider Surgery
PROC: (CPT 49591; principal; 2024-12-15 09:30)
DX: K42.9 Umbilical hernia without obstruction or gangrene (principal); K21.9 Gastro-esophageal reflux disease without esophagitis; E78.00 Pure hypercholesterolemia, unspecified; G89.29 Other chronic pain; M79.7 Fibromyalgia; Z79.1 Long term (current) use of non-steroidal anti-inflammatories (NSAID)
CPT/HCPCS: 49591; J0131; J0690; J1100; J1885; J2003; J2250; J2405; J2704; J2795; J3010

== ENCOUNTER → 2024-12-15 08:05 | Outpatient (BNV) | payer OTHER, SELFPAY | PROVIDERS: PCP Nurse Practitioner Family; Visit Provider Surgery | DX: K42.9 Umbilical hernia without obstruction or gangrene (principal) | CPT/HCPCS: 49591 ==

== ENCOUNTER 2024-12-28 10:32 | Outpatient (AMB) | payer OTHER, SELFPAY ==
--- NOTE | 2024-12-28 10:35 | MHC.OFFVIS ---
Vital Signs 12/28/24 10:40 Height 5 ft 11 in Weight 190 lb BMI 26.5 Intake Visit Reasons: S/P umbilical hernia w/poss mesh Intake Note: This patient presents for post-op assessment status post repair of umbilical hernia. Pt c/o; reports no complaints pertaining to surgery. Economic Development Director Required: No Accompanied by: Self / Same As Patient Allergies No Known Allergies [No Known Allergies*] Allergy (Verified 12/28/24 10:41) Medication List - Last Reconciled 12/28/24 by Davis Voss MD ibuprofen 600 mg PO Q6H PRN HPI HPI S/P umbilical hernia w/poss mesh: Details: He was went repair of umbilical hernia last 12/15/2024. He tolerated procedure well. He currently denies significant complaints. [facility] Medical History GERD (gastroesophageal reflux disease) High cholesterol Fibromyalgia Chronic pain disorder Surgical History History of umbilical hernia repair (~12/15/24) No pertinent past surgical history Family History Father No problems noted. Mother No problems noted. Maternal Aunt Cancer Sister No problems noted. Social History Housing: Apartment Alcohol intake: never Patient Tobacco Use Status: Never used Tobacco e-Cigarette/Vaping Use: Never Used Second Hand Smoke Exposure: No service: No Current occupational status: employed Current occupation: [employer] Current occupational exposures/hazards: No Cognitive needs: No Hearing needs: No Vision needs: No Review of Systems Const Denies chills and Denies fever(s) Card Denies chest pain, Denies dyspnea and Denies dyspnea on exertion Resp Denies cough, Denies dyspnea and Denies dyspnea on exertion GI Denies hematochezia and Denies change in bowel habits Denies hematuria and Denies difficulty urinating Musc Denies back pain and Denies limited range of motion Neuro Denies focal weakness and Denies convulsions Psych Denies depression and Denies mood swings Physical Exam Vital Signs: BMI result Body Mass Index 26.5 Const General: comfortable and no acute distress Resp Effort & Inspection: normal respiratory effort GI Other: Incisions clean and dry, healing well, no recurrence of the hernia Palpation (GI): Soft to palpation, not firm and nontender Assessment & Plan Assessment & Plan (1) Umbilical hernia: Comment: small hernia on ct Code(s): K42.9 - Umbilical hernia without obstruction or gangrene Category: Medical Plan: Status post repair without mesh. He is doing well. The incisions well healed. The repair is intact I advised him to avoid lifting anything more than 20 lb for about 2 more weeks. He can follow up on a p.r.n. basis. Coding Level of Care Code Global (08749) Diagnoses Umbilical hernia K42.9
[2024-12-28 10:40] VITALS: BMI 26.5
== END 2024-12-28 10:48 | disposition home or self-care (01) ==
LOC: HO.HGS 10:33
PROVIDERS: PCP Nurse Practitioner Family; Visit Provider Surgery
DX: K42.9 Umbilical hernia without obstruction or gangrene (principal); Z09 Encounter for follow-up examination after completed treatment for conditions other than malignant neoplasm
CPT/HCPCS: 99212

== ENCOUNTER → 2024-12-28 10:32 | Outpatient (BNVA) | payer OTHER, SELFPAY | PROVIDERS: PCP Nurse Practitioner Family; Visit Provider Surgery | DX: Z09 Encounter for follow-up examination after completed treatment for conditions other than malignant neoplasm (principal); Z87.19 Personal history of other diseases of the digestive system; Z98.890 Other specified postprocedural states | CPT/HCPCS: 99212 ==

== ENCOUNTER → 2025-02-07 07:03 | Outpatient (BNVA) | payer OTHER, SELFPAY | PROVIDERS: PCP Nurse Practitioner Family; Visit Provider Nurse Practitioner Family | DX: Z13.89 Encounter for screening for other disorder (principal) ==

== ENCOUNTER 2025-05-31 08:15 | Outpatient (AMB) | payer OTHER, SELFPAY ==
[2025-05-31 08:19] VITALS: BP 122/76; PULSE 74; TEMP 36.5; O2SAT 96; BMI 29.1
--- NOTE | 2025-05-31 08:19 | AM.OFFWIN_ITS ---
Intake Vital Signs 05/31/25 08:19 Height 5 ft 11 in Weight 208 lb 6 oz BMI 29.1 BP 122/76 Blood Pressure Location Rt brachial Position Sitting Pulse 74 Pulse Source Pulse Oximeter Temp 97.7 F Temp Source Oral Pulse Oximetry (%) 96 Oxygen Delivery Method Room Air Intake Visit Reasons: EP Headaches/ear aches. Intake Note: Patient presents with headache and bilateral ear ache times 2 days. Patient also c/o pain in the arch of bilateral feet Patient Tobacco Use Status: Never used Tobacco Allergies No Known Allergies (No Known Allergies*) Allergy (Verified 05/31/25 08:24) Do you need a note to return to daycare/school/sports/work: No HPI HPI Comments History of Present Illness Details History - The patient is a 29-year-old male pres enting with headaches and earaches. - Headaches and earaches have been prese nt for the last two days. - He has a pain and pressure in the righ t ear. - He has a headache that he can't descri be but its not that bad today . - He has no associated visual changes, a uras, nausea, neck stiffness or pain. - The patient reports a tick bite three days ago, which is itchy but not significantly inflamed. - There is a history of body aches, whic h the patient considers normal due to his health condition. - The patient experiences some congestio n and a sore throat, with a history of allergies during this time of year. - The patient has not taken any medicati on for the headaches or congestion. - He denies sick contacts or travel. He denies CP or SOB. Physical Exam General: Cooperative, healthy appearing, comfortable, no acute distress and well developed Orientation: Patient oriented x3 Limitations: No limitations Head: Normal to inspection Ears: Hearing grossly normal bilaterally. No tragus tenderness. No mastoid tenderness noted. Face and sinus: Normal facial exam. No sinus tenderness noted. Eyes: Appearance normal, both eyes and all related structures. EOMI, PERRLA. Neck: Normal visual inspection and Yes full ROM. No lymphadenopathy noted. Respiratory: Normal respiratory effort and able to speak in complete sentences. No w/r/r noted. Cardiac: RRR, no m/r/g noted. Skin: Small punctate erythematous bite noted on the left inner ankle. No surrounding erythema noted. Neuro: Sensation intact. Patient was informed and verbally consented to the use of an ambient scribe for clinic note documentation during this visit. [facility] Medical History GERD (gastroesophageal reflux disease) High cholesterol Fibromyalgia Chronic pain disorder Surgical History History of umbilical hernia repair (~12/15/24) No pertinent past surgical history Family History Father No problems noted. Mother No problems noted. Maternal Aunt Cancer Sister No problems noted. Social History Housing: Apartment Alcohol intake: never Patient Tobacco Use Status: Never used Tobacco e-Cigarette/Vaping Use: Never Used Second Hand Smoke Exposure: No service: No Current occupational status: employed Current occupation: [employer] Current occupational exposures/hazards: No Cognitive needs: No Hearing needs: No Vision needs: No Review of Systems Const All systems reviewed & are unremarkable except as noted in HPI and below Physical Exam Vital Signs: Last Vital Signs Temp 97.7 F 05/31/25 08:19 Pulse 74 05/31/25 08:19 BP 122/76 05/31/25 08:19 Pulse Ox 96 05/31/25 08:19 Oxygen Delivery Method Room Air 05/31/25 08:19 BMI result Body Mass Index 29.1 Assessment & Plan Assessment & Plan (1) Ear pain, right: Code(s): H92.01 - Otalgia, right ear Plan: Most likely congestion vs allergies vs cerumen Plan - zyrtec D daily - use Flonase daily - tylenol or motrin as needed for pain or fever - follow up with PCP (2) Tick bite: Code(s): W57.XXXA - Bitten or stung by nonvenomous insect and other nonvenomous arthropods, initial encounter Qualifiers: Encounter type: initial encounter Laterality: left Site of tick bite: lower leg Qualified Code(s): S80.862A - Insect bite (nonvenomous), left lower leg, initial encounter; W57.XXXA - Bitten or stung by nonvenomous insect and other nonvenomous arthropods, initial encounter Plan Plan - Prophylactic antibiotics prescribed to prevent Lyme disease. - watch for rashes or signs of infection. Coding Level of Care Code Est Pt Level 4 (21346) Diagnoses Ear pain, right H92.01 Tick bite of left lower leg, initial encounter S80.862A; W57.XXXA Encounter type: initial encounter Laterality: left Site of tick bite: lower leg
== END 2025-05-31 09:25 | disposition home or self-care (01) ==
PROVIDERS: PCP Nurse Practitioner Family; Visit Provider Physician Assistant Medical
DX: H92.01 Otalgia, right ear (principal); S80.862A Insect bite (nonvenomous), left lower leg, initial encounter; W57.XXXA Bitten or stung by nonvenomous insect and other nonvenomous arthropods, initial encounter

== ENCOUNTER → 2025-05-31 08:15 | Outpatient (BNVA) | payer OTHER, SELFPAY | PROVIDERS: PCP Nurse Practitioner Family; Visit Provider Physician Assistant Medical | DX: H92.01 Otalgia, right ear (principal); R51.9 Headache, unspecified; S80.862A Insect bite (nonvenomous), left lower leg, initial encounter; W57.XXXA Bitten or stung by nonvenomous insect and other nonvenomous arthropods, initial encounter; Y93.9 Activity, unspecified; Y92.9 Unspecified place or not applicable; Y99.9 Unspecified external cause status | CPT/HCPCS: 99212 ==